=== PATIENT | female | born 1970 | race Caucasian/White ===

== ENCOUNTER 2022-07-22 20:10 | Emergency (ER) | payer BC, SELFPAY ==
[2022-07-22] VITALS (22 sets, daily range): BP systolic 120–142; BP diastolic 77–91; PULSE 100–140; RESP 32; TEMP 36.9; O2SAT 92–98; BMI 30.2
--- NOTE | 2022-07-22 20:23 | CRLHL7_ITS ---
For Patients: As a result of the Century Cures Act, medical imaging exams and procedure reports are released immediately into your electronic medical record. You may view this report before your referring provider. If you have questions, please contact your health care provider. HISTORY: Dyspnea. COMPARISON: None. FINDINGS: Frontal view of the chest. The lungs are clear. No evidence for pneumonia. Heart size and pulmonary vascularity are within normal. No pulmonary edema. No pleural effusion. Bony structures and soft tissues appear within normal. Dictated by Farhana Brewster MD @ 07/22/2022 8:43:41 PM (Electronically Signed)
[2022-07-22 20:35] LABS: HCO3 VBG 27 mmol/L (21-28); PCO2 VBG 41 mmHG (40-50); PO2 VBG 65.9 mmHG (25-47); pH VBG 7.417 (7.32-7.43)
[2022-07-22 20:39] LABS: Eosinophils Absolute Auto 0.05 K/uL (0.00-0.50); Eosinophils Percent Auto 0.8 % (0.0-7.0); Hemoglobin* 13.5 gm/dL (12.0-16.0); Immature Granulocytes Abs Auto 0.01 K/uL (0.00-0.30); Immature Granulocytes Pct Auto 0.2 %; Lymphocytes Percent Auto 18.9 % (20-44); Mean Corpuscular HGB Conc 34 gm/dL (32-36); Mean Corpuscular Hemoglobin 30 pg (26-34); Mean Corpuscular Volume 88 fL (80-100); Monocytes Percent Auto 6.7 % (0.0-11.0); Neutrophils Percent Auto 73.4 % (42.0-72.0); Platelet Count* 278 K/uL (140-440); RDW Coefficient of Variation % 12.8 % (11.5-15.5); Red Blood Count 4.53 m/uL (4.00-5.20)
[2022-07-22] MEDS: RACEPINEPHRINE HCL 0.5 ML VIAL.NEB NEB (20:39)
[2022-07-22] MEDS: IPRAT-ALBUT 0.5-2.5 MG/3 ML NEB 1 NEB IH (20:39)
[2022-07-22 20:49] LABS: Slide Review Reflex No
[2022-07-22] MEDS: 0.9 % SODIUM CHLORIDE 500 ML 500 ML IV (20:49)
[2022-07-22 20:54] LABS: Chloride* 104 mmol/L (96-114); Potassium* 3.9 mmol/L (3.6-5.1); Sodium* 138 mmol/L (135-149)
[2022-07-22 20:57] LABS: Blood Urea Nitrogen* 13 mg/dL (7-30); Carbon Dioxide* 24 mmol/L (20-32); Creatinine* 0.6 mg/dL (0.5-1.5); Est. Creatinine Clearance* 85.76; Estimated Glomerular Filt Rate 107 ml/min; Glucose* 96 mg/dL (60-115)
[2022-07-22 20:58] LABS: Calcium* 9.5 mg/dL (8.4-10.6)
[2022-07-22 21:03] LABS: C Reactive Protein* < 0.5 mg/dL (0.5-1.0)
[2022-07-22 21:06] LABS: NT Pro B Type NatriureticPept* 89 PG/mL (0-125)
[2022-07-22 21:12] LABS: INR 0.82 (0.91-1.10); Prothrombin Time 11.9 Seconds
--- NOTE | 2022-07-22 21:42 | CRLHL7_ITS ---
For Patients: As a result of the Century Cures Act, medical imaging exams and procedure reports are released immediately into your electronic medical record. You may view this report before your referring provider. If you have questions, please contact your health care provider. INDICATION: Chest tightness and dyspnea, elevated D-dimer TECHNIQUE: CT chest pulmonary PE protocol acquired with 95 cc Isovue 370 IV contrast. COMPARISON: April 27, 2021 FINDINGS: Cardiovascular structures: Normal vascular enhancement of the pulmonary arteries, no sign of pulmonary embolism. Heart size is normal. No sign of aneurysm the thoracic aorta. Mediastinum and best: No mass or adenopathy. Lungs: Clear. Pleura and pericardium: No effusions. Chest wall and axilla: No mass or adenopathy. Upper abdomen: Simple cyst in the right hepatic lobe. Status post cholecystectomy. Bones: No significant findings. IMPRESSION: No pulmonary embolism, pneumonia, or acute intrathoracic abnormality. Status post cholecystectomy. Please note that all CT scans at this facility use dose modulation, iterative reconstruction, and/or weight-based dosing when appropriate to reduce radiation dose to as low as reasonably achievable. Dictated by Rebecca Billings MD @ 07/22/2022 10:58:52 PM (Electronically Signed)
[2022-07-22 21:49] LABS: PCR FLU A POSITIVE PCR FLU A (Negative); PCR FLU B Negative PCR FLU B (Negative); PCR RSV Negative PCR RSV (Negative); SARS PCR* Negative SARS-CoV-2 (Negative)
[2022-07-22 23:04] LABS: Partial Thromboplastin Time* 27 Seconds (23-33)
[2022-07-23] VITALS: PULSE 112; O2SAT 94
[2022-07-23 00:01] VITALS: BP 118/79; PULSE 109; O2SAT 94
[2022-07-23 00:15] VITALS: PULSE 105; O2SAT 91
[2022-07-23] MEDS: 0.9 % SODIUM CHLORIDE 500 ML 500 ML 6000 ML IV (00:19)
[2022-07-23] MEDS: KETOROLAC 15 MG/ML inj IVP (00:19)
[2022-07-23] MEDS: ALBUTEROL SULFATE 2.5 MG/3 ML VIAL.NEB NEB (00:19)
[2022-07-23 00:30] VITALS: PULSE 106; O2SAT 93
--- NOTE | 2022-07-23 13:40 | ED.GENADULT ---
HPI - General Adult General Chief complaint: Asthma Stated complaint: Asthma Attack Time Seen by Provider: 07/22/22 20:21 History of Present Illness HPI narrative: 51-year-old woman walk-in to the emergency department extremely dyspneic. This seems to have settled in especially this morning when she started just to feel unwell and increasingly short of breath. It sounds though that there was somewhat of an abrupt onset of more significant symptoms. Does have inhalers at home but these have not been helpful; simply has not been able to hold her breath long enough to even keeping the medication. Has not been using her controller inhalers generally. This information is difficult to obtain initially as she is so breathless. Has not had a fever. Was having some cough and congestion preceding this. Sometime I think around an episode of coughing then started to feel like she was choking her like her throat was tightening. She later recounts that she has felt this similarly in the past and sounds like it might be distinct from typical asthma. Does not have a diagnosis of COPD. Does not smoke. No leg pain or swelling. Later demonstrating feeling with her hands placed around her neck in a choking gesture. Denies feeling particularly anxious or history of anxiety. No particular allergen exposure. Related Data Home Medications Medication Instructions Recorded Confirmed albuterol sulfate 90 mcg/actuation inhalation 07/22/22 aerosol inhaler Previous Rx's Medication Instructions Recorded trazodone 100 mg tablet 150 mg PO .hs PRN insomnia #90 tabs 03/13/22 ipratropium 0.5 mg-albuterol 3 mg 3 ml inhalation QID PRN #90 mL 07/23/22 (2.5 mg base)/3 mL nebulization soln Allergies Allergy/AdvReac Type Severity Reaction Status Date / Time codeine Allergy Intermediate Hives Verified 07/22/22 20:38 Review of Systems Status of ROS: Reports: 10 or more systems reviewed and unremarkable except as noted in History and below [facility] Medical History Insomnia Exam Narrative: Exam Narrative: Arrives in marked distress. Appears anxious. Extremely tachypneic and vaguely stridorous. At least harsh inhalations and exhalation. My initial auscultation however does not reveal any wheeze. She does have good air movement. Trachea midline. She is drooling through the non-rebreather mask and somewhat tripoding. Cardiovascular is tachycardic in regular rhythm. Extremities are without edema and she appears to be well perfused. Cranial nerves 2-12 intact. Is able to move all extremities without apparent difficulty. Const: Vital Signs, click to edit/add: Vital Signs - 24 hr 07/22/22 20:20 07/22/22 20:22 07/22/22 20:55 Temperature 98.4 F Pulse Rate 104 H Pulse Rate [Pulse Oximeter] 140 H Respiratory Rate 32 H Blood Pressure Blood Pressure [Le ft Upper Arm] 142/84 H Pulse Oximetry 98 94 94 Oxygen Delivery Me thod Room Air 07/22/22 21:00 07/22/22 21:01 07/22/22 21:15 Temperature Pulse Rate 104 H 105 H 110 H Pulse Rate [Pulse Oximeter] Respiratory Rate Blood Pressure 123/84 Blood Pressure [Le ft Upper Arm] Pulse Oximetry 94 92 95 Oxygen Delivery Me thod 07/22/22 21:31 07/22/22 21:32 07/22/22 21:45 Temperature Pulse Rate 105 H 107 H 103 H Pulse Rate [Pulse Oximeter] Respiratory Rate Blood Pressure 120/82 Blood Pressure [Le ft Upper Arm] Pulse Oximetry 93 93 93 Oxygen Delivery Me thod 07/22/22 22:04 07/22/22 22:05 07/22/22 22:06 Temperature Pulse Rate 122 H 121 H 126 H Pulse Rate [Pulse Oximeter] Respiratory Rate Blood Pressure 128/80 126/91 H Blood Pressure [Le ft Upper Arm] Pulse Oximetry 96 96 94 Oxygen Delivery Me thod 07/22/22 22:22 07/22/22 22:30 07/22/22 22:31 Temperature Pulse Rate 109 H 106 H 102 H Pulse Rate [Pulse Oximeter] Respiratory Rate Blood Pressure 130/85 Blood Pressure [Le ft Upper Arm] Pulse Oximetry 97 95 94 Oxygen Delivery Me thod 07/22/22 22:45 07/22/22 23:00 07/22/22 23:01 Temperature Pulse Rate 101 H 110 H 111 H Pulse Rate [Pulse Oximeter] Respiratory Rate Blood Pressure 122/86 Blood Pressure [Le ft Upper Arm] Pulse Oximetry 93 93 94 Oxygen Delivery Me thod 07/22/22 23:17 07/22/22 23:30 07/22/22 23:31 Temperature Pulse Rate 108 H 108 H 100 Pulse Rate [Pulse Oximeter] Respiratory Rate Blood Pressure 124/77 Blood Pressure [Le ft Upper Arm] Pulse Oximetry 94 93 93 Oxygen Delivery Me thod 07/22/22 23:45 07/23/22 00:00 07/23/22 00:01 Temperature Pulse Rate 113 H 112 H 109 H Pulse Rate [Pulse Oximeter] Respiratory Rate Blood Pressure 118/79 Blood Pressure [Le ft Upper Arm] Pulse Oximetry 94 94 94 Oxygen Delivery Me thod 07/23/22 00:15 07/23/22 00:30 Temperature Pulse Rate 105 H 106 H Pulse Rate [Pulse Oximeter] Respiratory Rate Blood Pressure Blood Pressure [Le ft Upper Arm] Pulse Oximetry 91 93 Oxygen Delivery Me thod Documenting provider has reviewed patient's vital signs: yes Course Vital Signs Vital signs: Initial Vital Signs Temperature 98.4 F 07/22/22 20:20 Temperature Source Temporal Artery Scan 07/22/22 20:20 Pulse Rate 140 H 07/22/22 20:20 Respiratory Rate 32 H 07/22/22 20:20 Blood Pressure 142/84 H 07/22/22 20:20 Blood Pressure Mean 103 07/22/22 20:20 Pulse Oximetry 98 07/22/22 20:20 Oxygen Delivery Method 07/22/22 20:20 Vital Signs Temperature 98.4 F 07/22/22 20:20 Pulse Rate 140 H 07/22/22 20:20 Respiratory Rate 32 H 07/22/22 20:20 Blood Pressure 142/84 H 07/22/22 20:20 Pulse Oximetry 98 07/22/22 20:20 Oxygen Delivery Method 07/22/22 20:20 Temperature 98.4 F 07/22/22 20:20 Pulse Rate 106 H 07/23/22 00:30 Respiratory Rate 32 H 07/22/22 20:20 Blood Pressure 118/79 07/23/22 00:01 Pulse Oximetry 93 07/23/22 00:30 Oxygen Delivery Method 07/22/22 20:20 Medical Decision Making MDM Narrative Medical decision making narrative: Is initiated on oxygen but is oxygenating 98-100% on room air. Subsequently being transition to a DuoNeb though absent of wheezing what I think is more of an upper airway issue I ask for epinephrine neb to be initiated. Does over time calm. Labs are drawn. Chest x-ray by my read is without evidence of infiltration it or pneumothorax. My initial concern was large pulmonary embolus however maintaining oxygen saturations and without pleuritic chest pain. This seems more of a laryngospasm type event in the setting of asthma. She mentioned had been feeling unwell and so is being triple screened as well. Prior to triple screen being resulted D-dimer is available and elevated somewhat. Is sent for IV contrasted CT scan pulmonary embolus protocol was thankfully is negative. Positive influenza a Overall has been improving. And still feels some tightness in the upper chest. Examination of the oropharynx mildly erythematous. Neck is supple without lymphadenopathy. Mild edema perhaps as well. She remains somewhat laryngitic. Given ice chips. She says this helps a little. We continue to monitor and oxygenation has dropped a little bit though to 93-95%. Is given a DuoNeb. Script written for nebulizer. Lab Data Lab results reviewed: Yes I reviewed the patient's lab results Labs: Lab Results 07/22/22 07/22/22 07/22/22 Range/Units 20:20 20:20 20:20 WBC 6.60 (4.50-11.00) K/uL RBC 4.53 (4.00-5.20) m/uL Hgb 13.5 (12.0-16.0) gm/dL Hct 40.0 (33.0-51.0) % MCV 88 (80-100) fL MCH 30 (26-34) pg MCHC 34 (32-36) gm/dL RDW Coeff of Sophia 12.8 (11.5-15.5) % Plt Count 278 (140-440) K/uL Neut % (Auto) 73.4 H (42.0-72.0) % Lymph % (Auto) 18.9 L (20-44) % Miller % (Auto) 6.7 (0.0-11.0) % Eos % (Auto) 0.8 (0.0-7.0) % Baso % (Auto) 0.0 (0.0-3.0) % Neut # (Auto) 4.80 (1.7-7.0) K/uL Lymph # (Auto) 1.20 (0.90-2.90) K/uL Miller # (Auto) 0.40 (0.00-0.90) K/UL Eos # (Auto) 0.05 (0.00-0.50) K/uL Baso # (Auto) 0.00 (0.00-0.30) K/uL Abs Immat Gran (auto) 0.01 (0.00-0.30) K/uL Imm/Tot Granulo (auto) 0.2 % INR 0.82 L (0.91-1.10) APTT 27 (23-33) Seconds D-Dimer Quant (PE/DVT) 0.60 H (0.00-0.50) ug/ml VBG pH (7.32-7.43) VBG pCO2 (40-50) mmHG VBG pO2 (25-47) mmHG VBG HCO3 (21-28) mmol/L Sodium 138 (135-149) mmol/L Potassium 3.9 (3.6-5.1) mmol/L Chloride 104 (96-114) mmol/L Carbon Dioxide 24 (20-32) mmol/L BUN 13 (7-30) mg/dL Creatinine 0.6 (0.5-1.5) mg/dL Estimated Creat Clear 85.76 Estimated GFR 107 ml/min Glucose 96 (60-115) mg/dL Calcium 9.5 (8.4-10.6) mg/dL C-Reactive Protein < 0.5 L (0.5-1.0) mg/dL NT-Pro-B Natriuret Pep 89 (0-125) PG/mL SARS-CoV-2 (PCR) (Negative) Influenza Type A (PCR) (Negative) Influenza Type B (PCR) (Negative) RSV (PCR) (Negative) 07/22/22 07/22/22 Range/Units 20:20 20:20 WBC (4.50-11.00) K/uL RBC (4.00-5.20) m/uL Hgb (12.0-16.0) gm/dL Hct (33.0-51.0) % MCV (80-100) fL MCH (26-34) pg MCHC (32-36) gm/dL RDW Coeff of Sophia (11.5-15.5) % Plt Count (140-440) K/uL Neut % (Auto) (42.0-72.0) % Lymph % (Auto) (20-44) % Miller % (Auto) (0.0-11.0) % Eos % (Auto) (0.0-7.0) % Baso % (Auto) (0.0-3.0) % Neut # (Auto) (1.7-7.0) K/uL Lymph # (Auto) (0.90-2.90) K/uL Miller # (Auto) (0.00-0.90) K/UL Eos # (Auto) (0.00-0.50) K/uL Baso # (Auto) (0.00-0.30) K/uL Abs Immat Gran (auto) (0.00-0.30) K/uL Imm/Tot Granulo (auto) % INR (0.91-1.10) APTT (23-33) Seconds D-Dimer Quant (PE/DVT) (0.00-0.50) ug/ml VBG pH 7.417 (7.32-7.43) VBG pCO2 41 (40-50) mmHG VBG pO2 65.9 H (25-47) mmHG VBG HCO3 27 (21-28) mmol/L Sodium (135-149) mmol/L Potassium (3.6-5.1) mmol/L Chloride (96-114) mmol/L Carbon Dioxide (20-32) mmol/L BUN (7-30) mg/dL Creatinine (0.5-1.5) mg/dL Estimated Creat Clear Estimated GFR ml/min Glucose (60-115) mg/dL Calcium (8.4-10.6) mg/dL C-Reactive Protein (0.5-1.0) mg/dL NT-Pro-B Natriuret Pep (0-125) PG/mL SARS-CoV-2 (PCR) Negative SARS-CoV-2 (Negative) Influenza Type A (PCR) POSITIVE PCR FLU A A (Negative) Influenza Type B (PCR) Negative PCR FLU B (Negative) RSV (PCR) Negative PCR RSV (Negative) Critical Care Time Critical Care Time Critical Care Time: Yes Attestation: The patient required my highest level preparedness to intervene emergently and I personally spent this critical care time directly and personally managing the patient. This critical care time included: Obtaining a history; Examining the patient; Pulse oximetry; Ordering and reviewing of studies; Arranging urgent treatment with development of a management plan; Evaluation of patients response to treatment; Frequent reassessment discussions with other providers. This critical care time was performed to assess and manage the high probability of imminent life-threatening deterioration that could result in multiorgan failure. It was exclusive of separate billable procedures and treating other patients and teaching time. Total Critical Care Time in Minutes: 40 Discharge Plan Discharge Clinical Impression: Asthma exacerbation, Influenza A, Laryngospasm, Headache Patient Disposition: Home w/ Parent or Adult Condition: Improved Additional Instructions: Hydrate. Sleep under the mist of a cool mist humidifier. Menthol vapors might be helpful. If you are noticing yourself to be wheezy, I would use the nebulizations 3-4 times daily over the next 3 days. Do restart your controller medication for asthma. Return for persistent and increased rate and work of breathing, chest pain associated with shortness of breath, inability to control fever. Prednisone, Tamiflu from [facility]. Prescriptions: New ipratropium-albuterol 0.5 mg-3 mg(2.5 mg base)/3 mL solution for nebulization 3 ml inhalation QID PRNQty: 90 1RF No Action albuterol sulfate 90 mcg/actuation HFA aerosol inhaler INHALATION trazodone 100 mg tablet 150 mg PO .hs PRN (Reason: insomnia) Qty: 90 3RF Follow Up/Referrals: Killian Potts MD [Primary Care Provider] - Stand Alone Forms: [employer] Info Instructions
== END 2022-07-23 00:43 | disposition home or self-care (01) ==
PROVIDERS: Emergency Provider Family Medicine; PCP Internal Medicine
DX: J45.901 Unspecified asthma with (acute) exacerbation (principal); J09.X2 Influenza due to identified novel influenza A virus with other respiratory manifestations
CPT/HCPCS: 36415; 71045; 71260; 80048; 82803; 83880; 85025; 85379; 85610; 85730; 86140; 87502; 87634; 87635; 94640; 94761; 96374; 99284; 99285; 99291; J1885; J7120; Q9967

== ENCOUNTER 2022-11-18 18:46 | Emergency (ER) | payer BC, SELFPAY ==
[2022-11-18 18:53] VITALS: BP 114/81; PULSE 71; RESP 16; TEMP 36.6; O2SAT 95; BMI 32.9
--- NOTE | 2022-11-18 19:08 | ED.LOWEXIN ---
HPI - Extremity Injury (Lower) General Time Seen by Provider: 19:08 Date Seen: 11/18/22 Chief Complaint: Extremity Pain/Injury, Lower Stated Complaint: Fell and hit R knee, Pain moving throughout R leg Time Seen by Provider: 11/18/22 19:08 Source: patient and RN notes reviewed Mode of arrival: ambulatory Limitations: no limitations History of Present Illness HPI Narrative: Rebecca is a 52-year-old female coming in with concern of right leg pain. She fell in her laundry room landing forward anteriorly on her right kneecap area or Wednesday of last week. There is maybe a little pain initially. By Wednesday she was having increasing pain. Feeling pain radiating down the outside of the right leg, pain radiating up the outside of the right leg. She feels it up to the outside of her hip. She notes when she tries to cross her right leg over the left she has limited movement across her body. She feels that flexibility is decreased. She feels like the right knee is a bit swollen. She does have some pain walking on the right knee and it will radiate down the leg and up the leg. She does not feel back pain per se with this but has had a history of back pain. The pain is not radiating down the back into the leg. 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 She could not get into the clinic until next Wednesday to see Dr. Potts. She does not remember injuring her right arm at all but her right shoulder is felt a little sore, has felt some pain into the muscles on the right anterior side of the neck, points to the sternocleidomastoid muscle. Does not sound like there is radiculopathy. With walking she feels some pain into the knee but also does think it feels like it is in the hip as well. Her primary complaint is her injury of her knee that is causing leg pain. MD complaint: knee injury Related Data Home Medications Medication Instructions Recorded Confirmed albuterol sulfate 90 mcg/actuation inhalation 07/22/22 aerosol inhaler Previous Rx's Medication Instructions Recorded ipratropium 0.5 mg-albuterol 3 mg 3 ml inhalation QID PRN #90 mL 07/23/22 (2.5 mg base)/3 mL nebulization soln trazodone 100 mg tablet 150 mg PO .hs PRN insomnia #90 tabs 10/15/22 Allergies Allergy/AdvReac Type Severity Reaction Status Date / Time kiwi Allergy Severe Anaphylaxis Verified 11/18/22 19:03 codeine Allergy Intermediate Hives Verified 11/18/22 19:03 peanut Allergy Intermediate Hives Verified 11/18/22 19:03 Review of Systems Status of ROS: Reports: 6 or more systems reviewed and unremarkable except as noted in History and below [facility] Medical History Insomnia Social History Smoking Status: Never smoker Do you use any of these nicotine containing products: None Second hand tobacco smoke exposure: No How often do you have a drink containing alcohol: 2-4 times a month How many standard drinks containing alcohol do you have on a typical day: 1 or 2 How often do you have six or more drinks on one occasion: Never AUDIT-C Alcohol total score: 2 Non-prescribed substance use: denies use service: No Exam Const: Vital Signs, click to edit/add: Vital Signs - 24 hr 11/18/22 18:53 Temperature 97.8 F Pulse Rate [Pulse Oximeter] 71 Respiratory Rate 16 Blood Pressure [Ri ght Upper Arm] 114/81 Pulse Oximetry 95 Oxygen Delivery Me thod Room Air Documenting provider has reviewed patient's vital signs: yes Common normals: no apparent distress, oriented x3, no limitations, healthy appearing and alert General appearance: cooperative, comfortable, well kempt and well developed Nutritional appearance: overweight HENMT: Common normals: normocephalic, head/scalp atraumatic, hearing grossly normal bilaterally and external nose normal Head and scalp: normocephalic and atraumatic Nose: external nose normal Mouth: lip normal Eye: Common normals: PERRL, EOMs intact bilaterally, conjunctivae normal and no scleral icterus Conjunctiva: conjunctiva(e) normal Pupil: PERRL Neck & C-Spine: Common normals: full ROM (No midline tenderness of her neck.), no lymphadenopathy (No masses, no tenderness musculature), supple, no meningeal signs, no JVD and thyroid normal Thyroid: thyroid normal Cardio: Common normals: no JVD, regular rate, regular rhythm, S1 normal heart sound, S2 normal heart sound, no gallops, no clicks and no murmurs Rate: regular rate Rhythm: regular rhythm Heart sounds: S1 normal and S2 normal Extremity: Other: Good symmetrical peripheral pulses, no edema or swelling noted of either extremity. Complains of range of motion when I do flexion extension of her right knee but there is no limitation. Negative Bull's to the best of my ability to perform this on her. I feel no palpable joint line tenderness, do not feel any effusion. There is no open wounds, no ecchymosis. She can straight leg raise without difficulty. There is some tenderness as you palpate along the outer thigh particularly over the trochanteric area. Internal external rotation of the hip does not reveal any significant pain. No midline tenderness over the back. Clavicle glenohumeral joint palpate intact on her right arm. She has got good range of motion of the right shoulder. I can find no evidence of any effusion, good range of motion of the shoulder itself although there may be some pain over 90?. Neuro: Common normals: oriented x3 Sensorium/orientation: alert Meningeal signs: no meningeal signs Psych: Appearance: well ket Course Course Hospital Course: This seems to be stemming from a knee injury. She could have some secondary referred pain up and down the leg. There is no evidence of swelling no physical changes representing any vascular change. She has pain with range of motion within the right knee. Does seem to have possibly some trochanteric bursitis based on clinical exam. She could have intra-articular issue stemming from the fall in the knee within the knee joint itself, possible translation into the hip joint with cartilaginous issues in both joints as a possibility. Have discussed x-raying her knee in her hip to start here, will follow up with her after I have seen those and the Radiology over-read. Reevaluation(s) Reevaluation #1: Reviewed with patient that her x-rays are not showing any acute pathology. She asked if we had a brace. I reviewed that we only had a long leg knee immobilizer. She did not want that. We discussed trying to go to a place that had durable medical goods, she might be able to find a neoprene sleeve to go over the knee for stability, could even trying Aron wrap around it. She is given a note to be off work tomorrow in Wednesday as she states the floors are extremely difficult for her to stand on right now. She will follow up with her appointment next week. We have discussed relative rest, ice elevation, Tylenol and ibuprofen for pain control. Time: 20:58 Vital Signs Vital signs: Initial Vital Signs Temperature 97.8 F 11/18/22 18:53 Temperature Source Temporal Artery Scan 11/18/22 18:53 Pulse Rate 71 11/18/22 18:53 Pulse Rhythm Regular 11/18/22 18:53 Pulse Strength 3+ Normal 11/18/22 18:53 Respiratory Rate 16 11/18/22 18:53 Blood Pressure 114/81 11/18/22 18:53 Blood Pressure Mean 92 11/18/22 18:53 Blood Pressure Position Sitting 11/18/22 18:53 Pulse Oximetry 95 11/18/22 18:53 Oxygen Delivery Method Room Air 11/18/22 18:53 Vital Signs Temperature 97.8 F 11/18/22 18:53 Pulse Rate 71 11/18/22 18:53 Respiratory Rate 16 11/18/22 18:53 Blood Pressure 114/81 11/18/22 18:53 Pulse Oximetry 95 11/18/22 18:53 Oxygen Delivery Method Room Air 11/18/22 18:53 Temperature 97.8 F 11/18/22 18:53 Pulse Rate 71 11/18/22 18:53 Respiratory Rate 16 11/18/22 18:53 Blood Pressure 114/81 11/18/22 18:53 Pulse Oximetry 95 11/18/22 18:53 Oxygen Delivery Method Room Air 11/18/22 18:53 MDM - Extremity Injury (Lower) Imaging Data X-ray right knee: Attestation: I have reviewed the pertinent imaging results. Radiologist's impression: Patient: REBECCA TRAMMELL Facility:?[facility] Patient ID:?[id number]?1970 Study:?XRay Knee Right 2V-11/18/2022 7:54:55 PM Ordering Physician:Pawan Simms Final Report: INDICATION: Fall, pain TECHNIQUE: Two views right knee COMPARISON: None available FINDINGS: No definite acute fracture or dislocation. Mild degenerative changes. No definite joint effusion. IMPRESSION: No acute fracture or dislocation. Dictated by Sharif Wagner MD @ 11/18/2022 8:07:20 PM (Electronic Signature) X-ray right hip: Attestation: I have reviewed the pertinent imaging results. Radiologist's impression: Patient: REBECCA TRAMMELL Facility:?[facility] Patient ID:?[id number] Site Patient ID:?[id number]. Site :?[id number] Study:?XRay Hip Right HIP 2V WITH PELVIS-11/18/2022 7:56:00 PM Ordering Physician:Pawan Simms Final Report: INDICATION: Injury and pain. TECHNIQUE: Pelvis and right hip 3 views. COMPARISON: None. FINDINGS: No acute fractures or malalignment. Joint spaces are maintained. Soft tissues are unremarkable. IMPRESSION: No acute osseous abnormalities. Dictated by Eulalio Schwarz MD @ 11/18/2022 8:10:48 PM (Electronic Signature) Critical Care Time Critical Care Time Critical Care Time: No Discharge Plan Discharge Clinical Impression: Acute pain of right knee Patient Disposition: Home, Self-Care Condition: Stable Instructions: Knee Pain (ED) Additional Instructions: Ice, elevate to try to minimize pain and swelling. Can use Tylenol and or ibuprofen as needed per bottle directions. Keep your appointment in clinic next week. Have provided a note to be off work the next 2 days. Activity Level: Activity as Tolerated Prescriptions: No Action albuterol sulfate 90 mcg/actuation HFA aerosol inhaler INHALATION ipratropium-albuterol 0.5 mg-3 mg(2.5 mg base)/3 mL solution for nebulization 3 ml inhalation QID PRNQty: 90 1RF trazodone 100 mg tablet 150 mg PO .hs PRN (Reason: insomnia) Qty: 90 3RF Follow Up/Referrals: Killian Potts MD [Primary Care Provider] - Stand Alone Forms: [employer] Info Instructions
--- NOTE | 2022-11-18 19:15 | CRLHL7_ITS ---
For Patients: As a result of the Cures Act, medical imaging exams and procedure reports are released immediately into your electronic medical record. You may view this report before your referring provider. If you have questions, please contact your health care provider. INDICATION: Fall, pain TECHNIQUE: Two views right knee COMPARISON: None available FINDINGS: No definite acute fracture or dislocation. Mild degenerative changes. No definite joint effusion. IMPRESSION: No acute fracture or dislocation. Dictated by Sharif Wagner MD @ 11/18/2022 8:07:20 PM (Electronically Signed)
--- NOTE | 2022-11-18 19:15 | CRLHL7_ITS ---
For Patients: As a result of the Cures Act, medical imaging exams and procedure reports are released immediately into your electronic medical record. You may view this report before your referring provider. If you have questions, please contact your health care provider. INDICATION: Injury and pain. TECHNIQUE: Pelvis and right hip 3 views. COMPARISON: None. FINDINGS: No acute fractures or malalignment. Joint spaces are maintained. Soft tissues are unremarkable. IMPRESSION: No acute osseous abnormalities. Dictated by Eulalio Schwarz MD @ 11/18/2022 8:10:48 PM (Electronically Signed)
== END 2022-11-18 21:07 | disposition home or self-care (01) ==
PROVIDERS: Emergency Provider Family Medicine; PCP Internal Medicine
DX: M25.561 Pain in right knee (principal)
CPT/HCPCS: 73502; 73560; 99283

== ENCOUNTER 2022-11-24 16:28 | Outpatient (CLI) | payer BC, SELFPAY | END 2022-11-24 16:29 | disposition home or self-care (01) | LOC: NFLDREF 16:29 | PROVIDERS: PCP Internal Medicine; Visit Provider Internal Medicine | DX: E55.9 Vitamin D deficiency, unspecified (principal); E03.9 Hypothyroidism, unspecified | CPT/HCPCS: 84439; 84443 ==

== ENCOUNTER 2022-12-29 15:15 | Outpatient (RCR) | payer BC, SELFPAY | END 2023-04-28 23:59 | disposition home or self-care (01) | PROVIDERS: PCP Internal Medicine; Visit Provider Internal Medicine | DX: M54.16 Radiculopathy, lumbar region (principal); R26.9 Unspecified abnormalities of gait and mobility; R26.81 Unsteadiness on feet; M62.81 Muscle weakness (generalized); Z51.89 Encounter for other specified aftercare | CPT/HCPCS: 97110; 97162 ==

== ENCOUNTER 2023-09-21 13:51 | Outpatient (CLI) | payer BC, SELFPAY ==
--- OUTSIDE RECORDS SUMMARY | 2023-09-21 13:54 | XMS_ITS | Continuity of Care Document ---
Author Name Unknown Organization [facility] Address [address] [place] [address] [address] [place] [address] Phone Care Team Providers Care Shot Bagger Name Role Phone Seferino Yanez MD Unavailable Unavailable Advance Directives Directive Yes / No Effective Date File Name No Information Encounters Encounter Description Practice Location Reason(s) For Visit Diagnoses Date Provider Providers Copied on Encounter [facility], [address] [place] [address], [address], tel:[phone] [address] [facility] No Information Renata Gentile. [facility], [address], [place], [id number] , [place]. tel:[phone] Family History Family Member Type Diagnosis Age At Onset No Information Payers Payer name Insurance type Covered green party ID Authoriza timonty(s) [facility] [id number] [facility] [id number] Social History Type Description Quantity Date Captured Comments Sex Female Smoking Status No Information Chief Complaint And Reason For Visit No Information Reason For Referral Reason For Referral No Information History Of Present Illness Encounter Date Complaint History Of Prese nt Illness No Information Functional Status Date Functional Assessmen t No Information Instructions Date Instruction Additional Infor mation No Information Assessments Type Assessment Date No Information Patient Care Teams Name Effective Dates (start - stop) Status Members No Information
--- OUTSIDE RECORDS SUMMARY | 2023-09-21 13:54 | XMS_ITS | Clinical Summary ---
Author Name Unknown Organization [facility] Address [place], [place] [address] Care Team Providers Care Gaming Manager Name Role Phone No, Pcp [[id number]] Primary Care Provider Unavailabl e Allergies Active Allergy Reactions Criticality Noted Date Comments Codeine Hives 07/21/2011 Kiwi Shortness Of Breath 01/10/2016 Peanut Hives,Itching 01/10/2016 Medications Medication Sig Dispensed Refills Start Date End Date Status CALCIUM CARBONATE-VITAMIN D2 500 MG-200 UNIT TAB 1 po bid 60 3 07/10/2008 Active nystatin (MYCOSTATIN) creamIndications:Fun gal rash of torso Apply topically to affected area(s) each time if needed for Other (Specify). 30 g 1 01/22/2015 Active fexofenadine (MYRIAM) 180 mg tabletIndications:Al lergic reaction, subsequent encounter Take 1 tablet by mouth once daily. 0 01/22/2015 Active cholecalciferol (VITAMIN D-3) 2,000 unit capsuleIndications:V itamin D deficiency Take 1 capsule by mouth once daily. 0 01/23/2015 Active albuterol HFA 90 mcg/actuation inhalerIndications:M oderate persistent asthma without complication Inhale 2 Puffs by mouth 4 times daily if needed. 1 Inhaler 3 09/03/2016 Active fluticasone (FLOVENT HFA) 110 mcg/Actuation inhalerIndications:M oderate persistent asthma without complication Inhale 2 Puffs by mouth 2 times daily. 1 Inhaler 11 09/03/2016 Active atorvastatin (LIPITOR) 20 mg tabletIndications:Hy perlipidemia, unspecified hyperlipidemia type Take 1 tablet by mouth once daily. 30 tablet 1 09/03/2016 Active EPINEPHrine (EPIPEN) 0.3 mg/0.3 mL injectionIndications :Allergic reaction, subsequent encounter Inject 0.3 mg intramuscular one time if needed for Allergic Reaction. 1 Each 09/03/2016 Active fluconazole (DIFLUCAN) 150 mg tabletIndications:Ye ast infection TAKE 1 TABLET BY MOUTH 1 TIME FOR 1 DOSE 1 tablet 0 01/19/2017 Active cyclobenzaprine (FLEXERIL) 5 mg tabletIndications:Ne ck pain, acute Take 1-2 tablets by mouth every 8 hours if needed for Muscle Spasm. 30 tablet 0 06/14/2017 Active levothyroxine (SYNTHROID) 75 mcg tabletIndications:Hy pothyroidism, unspecified type Take 1 tablet by mouth once daily. 30 tablet 0 11/15/2017 Active Active Problems Problem Noted Date Diagnosed Date Neck pain, acute 06/14/2017 Vitamin D deficiency 01/22/2014 Hypothyroidism 01/22/2014 Heel pain 01/17/2014 Actinic keratosis 06/01/2013 L3-4 and L5-S1 Herniations 03/25/2009 Right L4 and Left S1 Radiculitis 03/25/2009 Degeneration of lumbar or lumbosacral interverte bral disc 11/21/2007 Head injury, unspecified 02/08/2007 Overview: fell down stairs in 1997 Unspecified asthma(493.90) 02/08/2007 Immunizations Name Administration Dates Next Due Influenza, IIV3 (Age >=3 years) 08/28/2006 Tdap 08/12/2009 Family History Medical History Relation Name Comments Heart Disease Mother Relation Name Status Comments Father Alive Mother Alive Social History Tobacco Use Types Packs/Day Years Used Date Smoking Tobacco: Former Cigarettes Q uit: 06/07/2012 Smokeless Tobacco: Never Tobacco Cessation:Counseling Given: Yes Comments:occ. Alcohol Use Standard Drinks/Week Comments Yes 0 (1 standard drink = 0.6 oz pure alcohol) 1-2 drinks on the weekend occasionally Sex and Gender Information Value Date Recorded Sex Assigned at Not on file Gender Identity Not on file Sexual Orientation Not on file Obstetrics History Para Term AB IAB SAB Ectopic Multiple Livin g Live Births 2 2 2 Date Outcome GA Total Labor Labor/2nd/3rd Weight Sex Delivery Anes PTL Sherri A1 A5 Name Cl in Para Para Last Filed Vital Signs Vital Sign Reading Time Taken Comments Blood Pressure 119/83 06/14/2017 1:33 PM CDT Pulse 83 06/14/2017 1:33 PM CDT Temperature 36.9 ??C (98.4 ??F) 06/14/2017 1:33 PM CD T Respiratory Rate 18 01/10/2016 1:30 PM CDT Oxygen Saturation 98% 06/14/2017 1:33 PM CDT Inhaled Oxygen Concentration - - Weight 76.1 kg (167 lb 11.2 oz) 06/14/2017 1:33 PM CDT Height 154.9 cm (5' 1) 09/14/2016 1:43 PM PRESCHOOL DIRECTOR Body Mass Index 31.69 09/14/2016 1:43 PM PRESCHOOL DIRECTOR Plan of Treatment Health Maintenance Due Date Last Done Comments COVID-19 vaccine series (#1) 02/12/1969 HIV for age 15-65 1983 Hepatitis C screening for age 18-79 1986 Colonoscopy through age 75 2013 Mammogram for age 45-75 09/08/2017 09/08/2016, 09/19 BMI (ht and wt on same day) for age 18+ 09/14/2017 09/14/2016, 09/03/2016, 01/10/2016 Depression screening for age 12+ 09/14/2017 09/14/2016 Pap test for age 21-65 01/22/2018 5, 01/17/2014, 05/01/2011, Additional history exists Zoster (shingles) series for age 50+ (1 of 2) 2018 Tetanus booster 08/12/2019 08/12/2009 Lipids for age 45-75 04/03/2020 04/03/2015, 01/22/2015, 01/19/2014, Additional history exists Influenza for age 50-64 04/23/2023 08/28/2006 Tdap Completed 08/12/2009 Pneumococcal series for age 6-64 Aged Out No longer eligible based on patient's age to complete this topic Care Teams Gaming Manager Relationship Specialty Start Date End Date NO, PCP [[id number]] PCP - General 11/25/15
== END 2023-09-21 13:52 | disposition home or self-care (01) ==
LOC: NFLDREF 13:52
PROVIDERS: PCP Internal Medicine; Visit Provider Family Medicine
DX: R63.5 Abnormal weight gain (principal)
CPT/HCPCS: 84439; 84443

== ENCOUNTER 2023-09-27 13:38 | Outpatient (CLI) | payer BC, SELFPAY ==
--- OUTSIDE RECORDS SUMMARY | 2023-09-27 13:39 | XMS_ITS | Clinical Summary ---
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
--- OUTSIDE RECORDS SUMMARY | 2023-09-27 13:40 | XMS_ITS | Continuity of Care Document ---
Author Name Unknown Organization [facility] Address [address] [place] [address] [address] [place] [address] Phone Care Team Providers Care Safe Technician Name Role Phone Seferino Yanez MD Unavailable Unavailable Advance Directives Directive Yes / No Effective Date File Name No Information Encounters Encounter Description Practice Location Reason(s) For Visit Diagnoses Date Provider Providers Copied on Encounter [facility], [address] [place] [address], [address], tel:[phone] [address] [facility] No Information Renata Gentile. [facility], [address], [place], [place], [id number] , [place]. tel:[phone] Family History Family Member Type Diagnosis Age At Onset No Information Payers Payer name Insurance type Covered constitution party ID Authoriza timonty(s) [facility] [id number] [facility] [id number] Social History Type Description Quantity Date Captured [...]
[2023-09-27 23:12] LABS: SARS PCR* Negative SARS-CoV-2 (Negative)
== END 2023-09-27 13:39 | disposition home or self-care (01) ==
LOC: KYNREF 13:38
PROVIDERS: PCP Internal Medicine; Visit Provider Nurse Practitioner Family
DX: J06.9 Acute upper respiratory infection, unspecified (principal); Z11.52 Encounter for screening for COVID-19
CPT/HCPCS: 87635

== ENCOUNTER 2023-10-14 15:40 | Emergency (ER) | payer BC, SELFPAY ==
[2023-10-14 16:04] VITALS: BP 132/90; PULSE 78; RESP 18; TEMP 36.4; O2SAT 100; BMI 36.6
--- NOTE | 2023-10-14 17:06 | ED_ITS ---
HPI - General Adult General Date Seen: 10/14/23 Chief complaint: Animal Bite Stated complaint: Cat bite R finger Time Seen by Provider: 10/14/23 16:28 Source: patient and RN notes reviewed Mode of arrival: ambulatory Limitations: no limitations History of Present Illness HPI narrative: Patient is a 53-year-old woman who was bitten by her mother's cat. Cat is up-to-date on immunizations. Patient's last tetanus was in 2019. She sustained a couple of small puncture wounds and 1 slightly larger v-shaped wound on her right index finger. She said it bled a lot initially but bleeding is controlled now. No other injuries or complaints. Related Data Home Medications Medication Instructions Recorded Confirmed albuterol sulfate 90 mcg/actuation 2 inh inhalation 09/27/23 09/27/23 aerosol inhaler Previous Rx's Medication Instructions Recorded trazodone 100 mg tablet 200 mg (2 x 100 mg) PO .hs PRN 09/21/23 insomnia #60 tabs albuterol sulfate 90 mcg/actuation 2 puff inhalation Q4-6H PRN 09/27/23 aerosol inhaler shortness of breath or wheezing #8.5 grams budesonide 90 mcg/actuation breath 1 inh inhalation BID 90 days #180 09/27/23 activated powder inhaler ea (Pulmicort Flexhaler) levothyroxine 50 mcg tablet 50 mcg PO QDAY #90 tabs 09/29/23 amoxicillin 875 mg-potassium 1 tab PO BID #10 tabs 10/14/23 clavulanate 125 mg tablet Allergies Allergy/AdvReac Type Severity Reaction Status Date / Time kiwi Allergy Severe Anaphylaxis Verified 09/27/23 13:12 codeine Allergy Intermediate Hives Verified 09/27/23 13:12 peanut Allergy Intermediate Hives Verified 09/27/23 13:12 pseudoephedrine Allergy Intermediate Hives Verified 09/27/23 13:27 [From Sudafed] [facility] Medical History (Updated 10/14/23 @ 16:49 by Brionna Mars MD) Lumbar radiculopathy ?M54.16 - Radiculopathy, lumbar region (ICD-10) History of traumatic brain injury (1997) ?Z87.820 - Personal history of traumatic brain injury (ICD-10) Insomnia ?G47.00 - Insomnia, unspecified (ICD-10) Surgical History (Updated 11/23/22 @ 13:46 by Pallavi Strickland ~ PSR) History of colonoscopy ?Z98.890 - Other specified postprocedural states (ICD-10) History of cholecystectomy (06/10/12) ?Z90.49 - Acquired absence of other specified parts of digestive tract (ICD- 10) Family History (Updated 11/23/22 @ 13:50 by Pallavi Strickland ~ PSR) Mother Coronary artery disease Social History (Updated 11/23/22 @ 13:50 by Pallavi Strickland ~ PSR) Narrative: Non-smoker Social alcohol use Does not use illicit drugs Smoking Status: Former smoker Do you use any of these nicotine containing products: None Second hand tobacco smoke exposure: No How often do you have a drink containing alcohol: 2-4 times a month How many standard drinks containing alcohol do you have on a typical day: 1 or 2 How often do you have six or more drinks on one occasion: Never AUDIT-C Alcohol total score: 2 Non-prescribed substance use: denies use service: No Exam Narrative: Exam Narrative: Vital signs reviewed In general, alert, nontoxic woman. Extremities: Examination of the right hand shows a v-shaped laceration over the proximal finger between the MCP and the PIP joint on the palmar surface of the hand. She has 2 small punctures more distally. There is some fat protruding from the v-shaped wound. Bleeding is controlled. Distal CMS is normal. The finger is slightly diffusely swollen but she has intact flexion extension at MCP, PIP and the IP joints. Const: Vital Signs, click to edit/add: Vital Signs - 24 hr 10/14/23 16:04 Temperature 97.5 F L Pulse Rate [Pulse Oximeter] 78 Respiratory Rate 18 Blood Pressure [Ri ght Upper Arm] 132/90 H Pulse Oximetry 100 Oxygen Delivery Me thod Room Air Documenting provider has reviewed patient's vital signs: yes Course Course ED Course: I anesthetized the larger wound and trimmed away the fat so that the skin edges are well approximated. Overall the wound is approximately a cm in length, but wound edges approximate nicely, discussed with her that my preference would be not to suture this given that it was encouraged by a cat bite and I think is relatively high risk in terms of getting infected. She is comfortable with that. We cleaned the wounds, tube gauze dressing and antibiotic ointment placed by the nurse. Will prescribe Augmentin prophylactically. Discussed reasons to return, that it will probably feel worse tomorrow but should gradually improve after that. For significant worsening swelling, redness, new symptoms such as fever, inability to move the finger without significant pain return for re- evaluation. Vital Signs Vital signs: Initial Vital Signs Temperature 97.5 F L 10/14/23 16:04 Temperature Source Temporal Artery Scan 10/14/23 16:04 Pulse Rate 78 10/14/23 16:04 Pulse Rhythm Regular 10/14/23 16:04 Respiratory Rate 18 10/14/23 16:04 Blood Pressure 132/90 H 10/14/23 16:04 Blood Pressure Mean 104 10/14/23 16:04 Pulse Oximetry 100 10/14/23 16:04 Oxygen Delivery Method Room Air 10/14/23 16:04 Vital Signs Temperature 97.5 F L 10/14/23 16:04 Pulse Rate 78 10/14/23 16:04 Respiratory Rate 18 10/14/23 16:04 Blood Pressure 132/90 H 10/14/23 16:04 Pulse Oximetry 100 10/14/23 16:04 Oxygen Delivery Method Room Air 10/14/23 16:04 Temperature 97.5 F L 10/14/23 16:04 Pulse Rate 78 10/14/23 16:04 Respiratory Rate 18 10/14/23 16:04 Blood Pressure 132/90 H 10/14/23 16:04 Pulse Oximetry 100 10/14/23 16:04 Oxygen Delivery Method Room Air 10/14/23 16:04 Discharge Plan Discharge Clinical Impression: Cat bite of finger Patient Disposition: Home, Self-Care Condition: Improved Instructions: Animal Bite (ED) Additional Instructions: Antibiotic as prescribed. You can leave the dressing that we put on today on for the next couple few days unless you are having severe increases in pain or swelling in which case she should check the wounds. For significant worsening redness, swelling or pain beyond the next 24 hours, return for re-evaluation. Prescriptions: New amoxicillin-pot clavulanate 875-125 mg tablet 1 tab PO BID Qty: 10 0RF No Action trazodone 100 mg tablet 200 mg PO .hs PRN (Reason: insomnia) Qty: 60 3RF Pulmicort Flexhaler 90 mcg/actuation aerosol powdr breath activated 1 inh inhalation BID 90 Days Qty: 180 3RF albuterol sulfate 90 mcg/actuation HFA aerosol inhaler 2 puff inhalation Q4-6H PRN (Reason: shortness of breath or wheezing) Qty: 8.5 6RF albuterol sulfate 90 mcg/actuation HFA aerosol inhaler 2 inh INHALATION levothyroxine 50 mcg tablet 50 mcg PO QDAY Qty: 90 0RF Follow Up/Referrals: Killian Potts MD [Primary Care Provider] - Stand Alone Forms: AFreeze Info Instructions
== END 2023-10-14 17:08 | disposition home or self-care (01) ==
LOC: ED 16:57
PROVIDERS: Emergency Provider Emergency Medicine; PCP Internal Medicine
DX: S61.250A Open bite of right index finger without damage to nail, initial encounter (principal); W55.01XA Bitten by cat, initial encounter
CPT/HCPCS: 99283; 99284

== ENCOUNTER 2023-11-19 13:50 | Emergency (ER) | payer BC, SELFPAY ==
[2023-11-19 14:28] VITALS: BP 121/81; PULSE 86; RESP 20; TEMP 36.9; O2SAT 97; BMI 36.6
--- NOTE | 2023-11-19 19:02 | ED_ITS ---
HPI - General Adult General Chief complaint: Chest Pain Stated complaint: lower back and chest pain, headache, nausea Time Seen by Provider: 11/19/23 18:39 Source: patient Mode of arrival: ambulatory Limitations: no limitations History of Present Illness HPI narrative: Patient is a 53 year old female coming in today with several concerns. 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 This pain then radiated across the entire mid back, then around the right flank into the right anterior abdomen, then up the back into the neck and around the top of both shoulders, and finally into her neck and across the chest. This spreading pain lasted but minutes before it went away. She states , however, that she immediately developed a dull headache. She then stated that she has felt ?out of it ever since. She really can not be more specific. She does deny neurologic deficits. She states that she still has some right-sided flank discomfort but that all of the other pains have essentially resolved. She is not short of breath. When this occurred she did not lose consciousness, be come dizzy or diaphoretic. She denies any recent illness. She does complain of increased urinary frequency for about a week. No dysuria or urgency. No blood in her urine. No fevers or chills. No nausea or vomiting. She denies confusion, altered mental status. No new ringing in her ears or double vision. Past medical history significant for hypothyroidism, obesity, hypo for lipidemia, asthma, insomnia, vitamin-D deficiency , chronic back pain, lumbar radiculopathy. Related Data Home Medications Medication Instructions Recorded Confirmed albuterol sulfate 90 mcg/actuation 2 inh inhalation 09/27/23 09/27/23 aerosol inhaler Previous Rx's Medication Instructions Recorded trazodone 100 mg tablet 200 mg (2 x 100 mg) PO .hs PRN 09/21/23 insomnia #60 tabs albuterol sulfate 90 mcg/actuation 2 puff inhalation Q4-6H PRN 09/27/23 aerosol inhaler shortness of breath or wheezing #8.5 grams budesonide 90 mcg/actuation breath 1 inh inhalation BID 90 days #180 09/27/23 activated powder inhaler ea (Pulmicort Flexhaler) levothyroxine 50 mcg tablet 50 mcg PO QDAY #90 tabs 09/29/23 amoxicillin 875 mg-potassium 1 tab PO BID #10 tabs 10/14/23 clavulanate 125 mg tablet Allergies Allergy/AdvReac Type Severity Reaction Status Date / Time kiwi Allergy Severe Anaphylaxis Verified 11/19/23 14:34 codeine Allergy Intermediate Hives Verified 11/19/23 14:34 peanut Allergy Intermediate Hives Verified 11/19/23 14:34 pseudoephedrine Allergy Intermediate Hives Verified 11/19/23 14:34 [From Sudafed] Review of Systems Status of ROS: Reports: 10 or more systems reviewed and unremarkable except as noted in History and below [facility] Medical History Lumbar radiculopathy ?M54.16 - Radiculopathy, lumbar region (ICD-10) History of traumatic brain injury (1997) ?Z87.820 - Personal history of traumatic brain injury (ICD-10) Insomnia ?G47.00 - Insomnia, unspecified (ICD-10) Surgical History History of colonoscopy ?Z98.890 - Other specified postprocedural states (ICD-10) History of cholecystectomy (06/10/12) ?Z90.49 - Acquired absence of other specified parts of digestive tract (ICD- 10) Family History Mother Coronary artery disease Social History Narrative: Non-smoker Social alcohol use Does not use illicit drugs Smoking Status: Former smoker Do you use any of these nicotine containing products: None Second hand tobacco smoke exposure: No How often do you have a drink containing alcohol: 2-4 times a month How many standard drinks containing alcohol do you have on a typical day: 1 or 2 How often do you have six or more drinks on one occasion: Never AUDIT-C Alcohol total score: 2 Non-prescribed substance use: denies use service: No Exam Narrative: Exam Narrative: Overweight, well-developed patient in no acute distress. Alert and oriented. Answers questions appropriately. Mood and affect are appropriate. Thoughts are goal oriented and rational. No tangential or magical thinking noted. Patient speaks in full sentences without needing to catch her breath. She does not appear ill or toxic. HEENT: Normocephalic atraumatic. Pupils are equally round reactive to light. Extraocular muscles are intact. Conjunctivae are moist without any icterus noted. Moist mucous membranes. Cardiovascular: Heart is regular rate and rhythm S1 and S2 are present without any murmurs. Lungs: Clear to auscultation bilaterally no wheezes rhonchi or rales are appreciated. Patient takes deep breaths without any discomfort. Abdomen: Soft and nontender nondistended with normal bowel sounds. No guarding or rebound. No masses or organomegaly appreciated. No CVA tenderness. Extremities: Bilateral lower extremities are without edema. Normal DP and PT pulses. Skin: Well perfused without any obvious rashes. Strength is 5/5 of the upper and lower extremities. Reflexes are 2+ and symmetric at the knees. Cranial nerves 3-12 are normal. Cgvkhg-el-sozb is normal. There is no nystagmus either horizontally or vertically. Gait is normal. Const: Vital Signs, click to edit/add: Vital Signs - 24 hr 11/19/23 14:28 Temperature 98.5 F Pulse Rate [Pulse Oximeter] 86 Respiratory Rate 20 Blood Pressure [Ri ght Upper Arm] 121/81 Pulse Oximetry 97 Oxygen Delivery Me thod Room Air Course Course ED Course: Given her continued right flank pain and increased urinary frequency over the last week, we did proceed with labs and a UA. CBC is normal. Chemistries are unremarkable. LFTs are unremarkable. Normal CRP. UA unremarkable. Patient reassured. Vital Signs Vital signs: Initial Vital Signs Temperature 98.5 F 11/19/23 14:28 Temperature Source Temporal Artery Scan 11/19/23 14:28 Pulse Rate 86 11/19/23 14:28 Pulse Rhythm Regular 11/19/23 14:28 Respiratory Rate 20 11/19/23 14:28 Blood Pressure 121/81 11/19/23 14: Blood Pressure Mean 94 11/19/23 14:28 Blood Pressure Position Sitting 11/19/23 14:28 Pulse Oximetry 97 11/19/23 14:28 Oxygen Delivery Method Room Air 11/19/23 14:28 Vital Signs Temperature 98.5 F 11/19/23 14:28 Pulse Rate 86 11/19/23 14:28 Respiratory Rate 20 11/19/23 14:28 Blood Pressure 121/81 11/19/23 14:28 Pulse Oximetry 97 11/19/23 14:28 Oxygen Delivery Method Room Air 11/19/23 14:28 Temperature 98.5 F 11/19/23 14:28 Pulse Rate 86 11/19/23 14:28 Respiratory Rate 20 11/19/23 14:28 Blood Pressure 121/81 11/19/23 14:28 Pulse Oximetry 97 11/19/23 14:28 Oxygen Delivery Method Room Air 11/19/23 14:28 Medical Decision Making MDM Narrative Medical decision making narrative: 53-year-old female with sudden back pain with straightening up from a bent over position. We discussed heating pad, Tylenol reasons for follow-up. Patient had no other questions. Lab Data Lab results reviewed: Yes I reviewed the patient's lab results Labs: Lab Results 11/19/23 11/19/23 Range/Units 19:09 19:37 WBC 4.66 (4.50-11.00) K/uL RBC 4.42 (4.00-5.20) m/uL Hgb 13.2 (12.0-16.0) gm/dL Hct 41.3 (33.0-51.0) % MCV 93 (80-100) fL MCH 30 (26-34) pg MCHC 32 (32-36) gm/dL RDW Coeff of Sophia 12.8 (11.5-15.5) % Plt Count 169 (140-440) K/uL Neut % (Auto) 57.9 (42.0-72.0) % Lymph % (Auto) 27.7 (20-44) % Whiteside % (Auto) 13.1 H (0.0-11.0) % Eos % (Auto) 1.3 (0.0-7.0) % Baso % (Auto) 0.0 (0.0-3.0) % Neut # (Auto) 2.70 (1.7-7.0) K/uL Lymph # (Auto) 1.29 (0.90-2.90) K/uL Whiteside # (Auto) 0.60 (0.00-0.90) K/UL Eos # (Auto) 0.06 (0.00-0.50) K/uL Baso # (Auto) 0.00 (0.00-0.30) K/uL Abs Immat Gran (auto) 0.00 (0.00-0.30) K/uL Imm/Tot Granulo (auto) 0.0 % Sodium 137 (135-149) mmol/L Potassium 4.4 (3.6-5.1) mmol/L Chloride 104 (96-114) mmol/L Carbon Dioxide 25 (20-32) mmol/L Anion Gap 8 (7-15) mEq/L BUN 19 (7-30) mg/dL Creatinine 0.6 (0.5-1.5) mg/dL Estimated Creat Clear 83.79 Estimated GFR 106 ml/min Glucose 92 (60-115) mg/dL Calcium 9.7 (8.4-10.6) mg/dL Total Bilirubin 0.7 (0.1-1.5) mg/dL Direct Bilirubin 0.1 (0.0-0.5) mg/dL AST 31 (12-35) U/L ALT 31 (4-35) U/L Alkaline Phosphatase 86 (40-150) U/L C-Reactive Protein < 0.5 L (0.5-1.0) mg/dL Total Protein 7.6 (6.0-8.3) g/dL Albumin 4.6 (3.3-5.0) g/dL Urine Color Yellow (Yellow) Urine Appearance Clear (Clear) Urine pH 6.0 (5.0-8.5) Ur Specific [place] 1.025 (1.000-1.030) Urine Protein Negative (Negative) Urine Glucose (UA) Negative (Negative) Urine Ketones Negative (Negative) Urine Blood Negative (Negative) Urine Nitrite Negative (Negative) Urine Bilirubin Negative (Negative) Urine Urobilinogen 0.2 (0.2-1.0) Ur Leukocyte Esterase Trace A (Negative) Discharge Plan Discharge Clinical Impression: Back pain Patient Disposition: Home, Self-Care Condition: Stable Additional Instructions: Use a heating pad to the sore area, okay to use Tylenol as needed. Recommend increasing daily physical exercise. Prescriptions: No Action trazodone 100 mg tablet 200 mg PO .hs PRN (Reason: insomnia) Qty: 60 3RF Pulmicort Flexhaler 90 mcg/actuation aerosol powdr breath activated 1 inh inhalation BID 90 Days Qty: 180 3RF albuterol sulfate 90 mcg/actuation HFA aerosol inhaler 2 puff inhalation Q4-6H PRN (Reason: shortness of breath or wheezing) Qty: 8.5 6RF amoxicillin-pot clavulanate 875-125 mg tablet 1 tab PO BID Qty: 10 0RF albuterol sulfate 90 mcg/actuation HFA aerosol inhaler 2 inh INHALATION levothyroxine 50 mcg tablet 50 mcg PO QDAY Qty: 90 0RF Follow Up/Referrals: Killian Potts MD [Primary Care Provider] - Stand Alone Forms: [facility] Info Instructions
[2023-11-19 19:17] LABS: Eosinophils Absolute Auto 0.06 K/uL (0.00-0.50); Eosinophils Percent Auto 1.3 % (0.0-7.0); Hematocrit 41.3 % (33.0-51.0); Hemoglobin* 13.2 gm/dL (12.0-16.0); Lymphocytes Absolute Auto 1.29 K/uL (0.90-2.90); Lymphocytes Percent Auto 27.7 % (20-44); Mean Corpuscular HGB Conc 32 gm/dL (32-36); Mean Corpuscular Hemoglobin 30 pg (26-34); Mean Corpuscular Volume 93 fL (80-100); Monocytes Percent Auto 13.1 % (0.0-11.0); Neutrophils Percent Auto 57.9 % (42.0-72.0); Platelet Count* 169 K/uL (140-440); RDW Coefficient of Variation % 12.8 % (11.5-15.5); Red Blood Count 4.42 m/uL (4.00-5.20); White Blood Count* 4.66 K/uL (4.50-11.00)
[2023-11-19 19:18] LABS: Slide Review Reflex No
[2023-11-19 19:23] LABS: Albumin* 4.6 g/dL (3.3-5.0); Chloride* 104 mmol/L (96-114); Sodium* 137 mmol/L (135-149)
[2023-11-19 19:24] LABS: Potassium* 4.4 mmol/L (3.6-5.1)
[2023-11-19 19:25] LABS: Creatinine* 0.6 mg/dL (0.5-1.5); Est. Creatinine Clearance* 83.79; Estimated Glomerular Filt Rate 106 ml/min
[2023-11-19 19:26] LABS: Alanine Aminotransferase* 31 U/L (4-35); Alkaline Phosphatase* 86 U/L (40-150); Anion Gap 8 mEq/L (7-15); Aspartate Amino Transferase* 31 U/L (12-35); Bilirubin Direct* 0.1 mg/dL (0.0-0.5); Bilirubin Total* 0.7 mg/dL (0.1-1.5); Blood Urea Nitrogen* 19 mg/dL (7-30); Carbon Dioxide* 25 mmol/L (20-32); Glucose* 92 mg/dL (60-115); Total Protein* 7.6 g/dL (6.0-8.3)
[2023-11-19 19:27] LABS: Calcium* 9.7 mg/dL (8.4-10.6)
[2023-11-19 19:37] LABS: C Reactive Protein* < 0.5 mg/dL (0.5-1.0)
[2023-11-19 19:47] LABS: Appearance Urine Clear (Clear); Bilirubin Urine Negative (Negative); Blood Urine Negative (Negative); Color Urine Yellow (Yellow); Glucose Urine Negative (Negative); Ketones Urine Negative (Negative); Leukocyte Esterase Urine Trace (Negative); Nitrite Urine Negative (Negative); Protein Urine Negative (Negative); Specific Gravity Urine 1.025 (1.000-1.030); Urobilinogen Urine 0.2 (0.2-1.0)
[2023-11-19 20:04] LABS: Bacteria Urine Few; RBC Urine 0-2 (0-2); Squamous Epithelial Cell Urine Few (None-Few); WBC Urine 0-2 (0-5)
== END 2023-11-19 20:08 | disposition home or self-care (01) ==
PROVIDERS: Emergency Provider Family Medicine; PCP Internal Medicine
DX: M54.9 Dorsalgia, unspecified (principal); X50.1XXA Overexertion from prolonged static or awkward postures, initial encounter
CPT/HCPCS: 36415; 80048; 80076; 81001; 85025; 86140; 87086; 99283; 99284

== ENCOUNTER 2024-03-15 16:08 | Outpatient (CLI) | payer BC, SELFPAY ==
--- OUTSIDE RECORDS SUMMARY | 2024-03-15 16:11 | XMS_ITS | Continuity of Care Document ---
Author Organization Z [facility] Address [address] [place] [address] [address] [place] [address] Phone Care Team Providers Care Tape Coater Name Role Phone Seferino Yanez MD Unavailable Unavailable Advance Directives Directive Yes / No Effective Date File Name No Information Encounters Encounter Description Practice Location Reason(s) For Visit Diagnoses Date Provider Providers Copied on Encounter Z [facility], [address], [address], tel:[phone] [address] [facility] No Information Renata Gentile. [facility] [place], [address], [place], [id number] , [place]. tel:[phone] Family History Family Member Type Diagnosis Age At Onset No Information Payers Payer name Insurance type Covered green party ID Authoriza timonty(s) [place] [id number] [facility] [id number] Social History Type Description Quantity Date Captured [...]
--- OUTSIDE RECORDS SUMMARY | 2024-03-15 16:11 | XMS_ITS | Clinical Summary ---
Author Organization [facility] Address [place], [place] [address] Care Team Providers Care Director Report Name Role Phone No, Pcp [[id number]] Primary [...] 1 TIME FOR 1 DOSE 1 tablet 01/19/2017 Active cyclobenzaprine (FLEXERIL) 5 mg tabletIndications:Ne ck pain, acute Take 1-2 tablets by mouth every 8 hours if needed for Muscle Spasm. 30 tablet 06/14/2017 Active levothyroxine (SYNTHROID) 75 mcg tabletIndications:Hy pothyroidism, unspecified type Take 1 tablet by mouth once daily. 30 tablet 11/15/2017 Active Active Problems Problem Noted Date [...] Outcome GA Total Labor Labor/2nd/3rd Weight Sex Type Anes PTL Sherri A1 A5 Name Clin Para Para Last Filed Vital Signs Vital [...] 154.9 cm (5' 1) 09/14/2016 1:43 PM [facility] Body Mass Index 31.69 09/14/2016 1:43 PM [facility] Plan of Treatment Health Maintenance Due Date Last Done Comments HIV for age 15-65 1983 Hepatitis C [...] 04/03/2020 04/03/2015, 01/22/2015, 01/19/2014, Additional history exists COVID-19 vaccine series (2022-24 season) 2023 Influenza for age 50-64 04/23/2024 08/28/2006 Tdap Completed 08/12/2009 Pneumococcal series for age 6-64 Aged Out No longer eligible based on patient's age to complete this topic Procedures Procedure Name Priority Date/Time Associated Diagnosis Comments XR MAMMO BILAT SCREENING Routine 09/08/2016 4:48 PM [facility] Visit for screening mammogram LIPID PANEL W REFLEX MEASURED LDL Routine 04/03/2015 5:40 PM CDT Hyperlipidemia DATA ENTRY SUPERVISOR THIN PREP PAP SCREEN IMAGED Routine 01/22/2015 10:46 AM CDT Screening for malignant neoplasm of the cervix from Last 3 Months or Most Recently Relevant to Health Maintenance Results * XR MAMMO BILAT SCREENING (09/08/2016 4:48 PM [facility]) Anatomical Region Laterality Modality BREASTS, Breast Left, Breast Right Bilateral Mammography Impressions 09/09/2016 12:28 PM [facility]OOK ??There is no radiographic evidence for malignancy. ??Recommend annual mammograms. A lay language report of this examination will be provided to the patient. MAMMOGRAM ASSESSMENT: ??ACR 2 Benign Narrative 09/09/2016 12:28 PM [facility] K[facility]TLE COOK XR MAMMO BILAT SCREENING [[id number]] CLINICAL HISTORY: ??This is an asymptomatic 46 y.o. patient. INDICATION FOR EXAM: Mammogram Screening. TECHNIQUE: CC & MLO views were obtained. ??This digital study was evaluated with the assistance of Computer-Aided Detection. COMPARISON FILMS: Yes 09/19/12 [facility] FINDINGS: ??Mammographically, the breast tissue has scattered fibroglandular densities. ??No suspicious masses or microcalcifications. ?? Intramammary lymph node within right breast. Lakesha VAZQUEZ MAMMO * (ABNORMAL) LIPID PANEL W REFLEX MEASURED LDL (04/03/2015 5:40 PM CDT) CHOLESTEROL,TOTAL 312(H) 100 - 199 mg/dL 04/03/2015 6:52 PM CDT [facility] TRIGLYCERIDES 151(H) <150 mg/dL 04/03/2015 6:52 PM CDT [facility] HDL CHOLESTEROL 80 >40 mg/dL 04/03/2015 6:52 PM CDT [facility] NON-HDL CHOLESTEROL 232(H) <145 mg/dl 04/03/2015 6:52 PM CDT [facility] CHOL/HDL RATIO 3.90 <4.50 04/03/2015 6:52 PM CDT [facility] LDL CHOLESTEROL 202(H) <=130 mg/dL 04/03/2015 6:52 PM CDT [facility] PATIENT STATUS NON-FASTI NG 04/03/2015 6:52 PM CDT [facility] Blood specimen (specimen) BLOOD SPECIMEN / Unknown Butterfly / Unknown 04/03/2015 5:40 PM CDT 04/03/2015 5:40 PM CDT Rekha Whittaker CHEMISTRY [facility] [address] [place] [address], * DATA ENTRY SUPERVISOR THIN PREP PAP SCREEN IMAGED (01/22/2015 10:46 AM CDT) DATA ENTRY SUPERVISOR CYTOLOGY See Anatomic Pathology case 01/27/2015 11:[address] [facility] Specimen (specimen) (Cervical/Vagina l) Non-Blood / Unknown 01/22/2015 10:46 AM CDT 01/22/2015 10:46 AM CDT Rekha Whittaker PATHOLOGY/CYTOL OGY [facility] [address] [place] [address], from Last 3 Months or Most Recently Relevant to Health Maintenance Care Teams Director Report Relationship Specialty Start Date End Date NO, PCP [[id number]] PCP - General 11/25/15
== END 2024-03-15 16:09 | disposition home or self-care (01) ==
LOC: NFLDREF 16:10
PROVIDERS: PCP Internal Medicine; Visit Provider Family Medicine
DX: E03.9 Hypothyroidism, unspecified (principal); R63.5 Abnormal weight gain
CPT/HCPCS: 84439; 84443

== ENCOUNTER 2024-04-11 10:36 | Outpatient (CLI) | payer BC, SELFPAY ==
--- OUTSIDE RECORDS SUMMARY | 2024-04-11 10:38 | XMS_ITS | Clinical Summary ---
Author Organization [facility] Address [place], [place] [address] Care Team Providers Care Director Independent Name Role Phone No, Pcp [[id number]] Primary [...] 154.9 cm (5' 1) 09/14/2016 1:43 PM MEDICAL DERMATOLOGIST Body Mass Index 31.69 09/14/2016 1:43 PM MEDICAL DERMATOLOGIST Plan of Treatment Health Maintenance Due Date [...] MAMMO BILAT SCREENING Routine 09/08/2016 4:48 PM MEDICAL DERMATOLOGIST Visit for screening mammogram LIPID PANEL W REFLEX MEASURED LDL Routine 04/03/2015 5:40 PM CDT Hyperlipidemia VICE PRESIDENT BUSINESS DEVELOPMENT THIN PREP PAP SCREEN IMAGED Routine 01/22/2015 10:46 AM CDT Screening for malignant neoplasm of the cervix from Last 3 Months or Most Recently Relevant to Health Maintenance Results * XR MAMMO BILAT SCREENING (09/08/2016 4:48 PM MEDICAL DERMATOLOGIST) Anatomical Region Laterality Modality BREASTS, Breast Left, Breast Right Bilateral Mammography Impressions 09/09/2016 12:28 PM MEDICAL DERMATOLOGIST ??There is no radiographic evidence for malignancy. ??Recommend annual mammograms. A lay language report of this examination will be provided to the patient. MAMMOGRAM ASSESSMENT: ??ACR 2 Benign Narrative 09/09/2016 12:28 PM MEDICAL DERMATOLOGIST XR MAMMO BILAT SCREENING [[id number]] CLINICAL HISTORY: ??This is an asymptomatic 46 y.o. patient. INDICATION FOR EXAM: Mammogram Screening. TECHNIQUE: CC & MLO views were obtained. ??This digital study was evaluated with the assistance of Computer-Aided Detection. COMPARISON FILMS: Yes 09/19/12 [facility] FINDINGS: ??Mammographically, the breast tissue has scattered fibroglandular densities. ??No suspicious masses or microcalcifications. ?? Intramammary lymph node within right breast. Lakesha VAZQUEZ MAMMO * (ABNORMAL) LIPID PANEL W REFLEX MEASURED LDL (04/03/2015 5:40 PM CDT) CHOLESTEROL,TOTAL 312(H) 100 - 199 mg/dL 04/03/2015 6:52 PM CDT [facility] TRIGLYCERIDES 151(H) <150 mg/dL 04/03/2015 6:52 PM CDT [facility] HDL CHOLESTEROL 80 >40 mg/dL 04/03/2015 6:52 PM CDT [facility] NON-HDL CHOLESTEROL 232(H) <145 mg/dl 04/03/2015 6:52 PM CDT [facility] CHOL/HDL RATIO 3.90 <4.50 04/03/2015 6:52 PM CDT [facility] LDL CHOLESTEROL 202(H) <=130 mg/dL 04/03/2015 6:52 PM CDT [facility] PATIENT STATUS NON-FASTI NG 04/03/2015 6:52 PM CDT [facility] Blood specimen (specimen) BLOOD SPECIMEN / Unknown Butterfly / Unknown 04/03/2015 5:40 PM CDT 04/03/2015 5:40 PM CDT Rekha Whittaker CHEMISTRY [facility] [address] [place] [address], * VICE PRESIDENT BUSINESS DEVELOPMENT THIN PREP PAP SCREEN IMAGED (01/22/2015 10:46 AM CDT) VICE PRESIDENT BUSINESS DEVELOPMENT CYTOLOGY See Anatomic Pathology case 01/27/2015 11:00 AM CDT [facility] Specimen (specimen) (Cervical/Vagina l) Non-Blood / Unknown 01/22/2015 10:46 AM CDT 01/22/2015 10:46 AM CDT Rekha Whittaker PATHOLOGY/CYTOL OGY [facility] [address] [place] [address], from Last 3 Months or Most Recently Relevant to Health Maintenance Care Teams Director Independent Relationship Specialty Start Date End Date NO, PCP [[id number]] PCP - General 11/25/15
--- OUTSIDE RECORDS SUMMARY | 2024-04-11 10:38 | XMS_ITS | Continuity of Care Document ---
Author Organization [facility] Address [address] [place] [address] [address] [place] [address] Phone Care Team Providers Care Relocation Counselor Name Role Phone Seferino Yanez MD Unavailable Unavailable Advance Directives Directive Yes / No Effective Date File Name No Information Encounters Encounter Description Practice Location Reason(s) For Visit Diagnoses Date Provider Providers Copied on Encounter Z [facility], [address], [address], tel:[phone] [address] [facility] No Information Renata Gentile. [facility] [place], [address], [place], [id number] , [place]. tel:[phone] Family History Family Member Type Diagnosis Age At Onset No Information Payers Payer name Insurance type Covered libertarian ID Authoriza timonty(s) [place] [id number] [facility] [id number] Social History Type Description Quantity Date Captured [...]
--- NOTE | 2024-04-11 10:45 | CRLHL7_ITS ---
For Patients: As a result of the Cures Act, medical imaging exams and procedure reports are released immediately into your electronic medical record. You may view this report before your referring provider. If you have questions, please contact your health care provider. BILATERAL DIAGNOSTIC MAMMOGRAM WITH COMPUTER-AIDED DETECTION AND TOMOSYNTHESIS CLINICAL HISTORY: BILATERAL breast pain. COMPARISON: 03/07/2021, 04/07/2019. TECHNIQUE: Digital BILATERAL mammogram in four projections with computer-aided detection. Tomosynthesis was used in this interpretation. BREAST COMPOSITION: There are scattered areas of fibroglandular density. FINDINGS: 3D CC and MLO BILATERAL mammogram images submitted. No suspicious mass or architectural distortion. No adenopathy or suspicious calcifications. IMPRESSION: Normal BILATERAL mammograms. RECOMMENDATIONS: Annual BILATERAL screening mammography. BI-RADS Category 2: Benign A lay language report of this examination will be provided to the patient. Dictated by Malcolm Barrera MD @ 04/11/2024 11:46:32 AM /abhijeet/edel SP/Dictated by: Malcolm Barrera MD @ 04/11/2024 11:46:00 AM (Electronically Signed)
== END 2024-04-11 10:37 | disposition home or self-care (01) ==
LOC: MAMMO 10:36
PROVIDERS: PCP Internal Medicine; Visit Provider Family Medicine
DX: N64.4 Mastodynia (principal)
CPT/HCPCS: 77066; G0279

== ENCOUNTER 2024-07-05 16:22 | Outpatient (CLI) | payer BC, SELFPAY ==
--- OUTSIDE RECORDS SUMMARY | 2024-07-08 20:17 | XMS_ITS | Continuity of Care Document ---
Author Organization Z [facility] Address [address] [place] [address] [address] [place] [address] Phone Care Team Providers Care Java Grails Developer Name Role Phone Seferino Yanez MD Unavailable Unavailable Advance Directives Directive Yes / No Effective Date File Name No Information Encounters Encounter Description Practice Location Reason(s) For Visit Diagnoses Date Provider Providers Copied on Encounter Z [facility], [address], [address], tel:[phone] [address] [facility] No Information Renata Gentile. [facility] [place], [address] [address], [place], [id number] , [place]. tel:[phone] Family History Family Member Type Diagnosis Age At Onset No Information Payers Payer name Insurance type Covered green party ID Authoriza timonty(s) [place] [id number] [facility] [id number] Social History Type Description Quantity Date Captured [...]
--- OUTSIDE RECORDS SUMMARY | 2024-07-08 20:17 | XMS_ITS | Clinical Summary ---
Author Organization [email or web address] [facility] Address [place], [place] [address] Care Team Providers Care Instructor Substitute Cosmetology Name Role Phone No, Pcp [[id number]] Primary [...] bral disc 11/21/2007 Head injury, unspecified 02/08/2007 Overview (02/08/2007): fell down stairs in 1997 Unspecified asthma(493.90) [...] 2 2 Date Outcome GA Total Labor Labor//3rd Weight Sex Type Anes PTL Sherri A1 [...] 154.9 cm (5' 1) 09/14/2016 1:43 PM BINDERY SUPERVISOR Body Mass Index 31.69 09/14/2016 1:43 PM BINDERY SUPERVISOR Plan of Treatment Health Maintenance Due Date [...] 01/19/2014, Additional history exists COVID-19 vaccine series (2023- season) 2024 Influenza for age 50-64 04/23/2024 08/28/2006 Tdap Completed 08/12/2009 Pneumococcal series for age 6-64 Aged Out No longer eligible based on patient's age to complete this topic Procedures Procedure Name Priority Date/Time Associated Diagnosis Comments XR MAMMO BILAT SCREENING Routine 09/08/2016 4:48 PM BINDERY SUPERVISOR Visit for screening mammogram LIPID PANEL W REFLEX MEASURED LDL Routine 04/03/2015 5:40 PM CDT Hyperlipidemia POWER STATION OPERATOR THIN PREP PAP SCREEN IMAGED Routine 01/22/2015 10:46 AM CDT Screening for malignant neoplasm of the cervix from Last 3 Months or Most Recently Relevant to Health Maintenance Results * XR MAMMO BILAT SCREENING (09/08/2016 4:48 PM BINDERY SUPERVISOR) Anatomical Region Laterality Modality BREASTS, Breast Left, Breast Right Bilateral Mammography Impressions 09/09/2016 12:28 PM BINDERY SUPERVISOR ??There is no radiographic evidence for malignancy. ??Recommend annual mammograms. A lay language report of this examination will be provided to the patient. MAMMOGRAM ASSESSMENT: ??ACR 2 Benign Narrative 09/09/2016 12:28 PM BINDERY SUPERVISOR XR MAMMO BILAT SCREENING [[id number]] CLINICAL HISTORY: ??This is an asymptomatic 46 y.o. patient. INDICATION FOR EXAM: Mammogram Screening. TECHNIQUE: CC & MLO views were obtained. ??This digital study was evaluated with the assistance of Computer-Aided Detection. COMPARISON FILMS: Yes 09/19/12 [facility] FINDINGS: ??Mammographically, the breast tissue has scattered fibroglandular densities. ??No suspicious masses or microcalcifications. ?? Intramammary lymph node within right breast. Lakesha VAZQUEZ MAMMO * (ABNORMAL) LIPID PANEL W REFLEX MEASURED LDL (04/03/2015 5:40 PM CDT) CHOLESTEROL,TOTAL 312(H) 100 - 199 mg/dL 04/03/2015 6:52 PM CDT [facility] TRIGLYCERIDES 151(H) <150 mg/dL 04/03/2015 6:52 PM CDT [facility] HDL CHOLESTEROL 80 >40 mg/dL 04/03/2015 6:52 PM CDT [facility] NON-HDL CHOLESTEROL 232(H) <145 mg/dl 04/03/2015 6:52 PM CDT [facility] CHOL/HDL RATIO 3.90 <4.50 04/03/2015 6:52 PM CDT [facility] LDL CHOLESTEROL 202(H) <=130 mg/dL 04/03/2015 6:52 PM CDT [facility] PATIENT STATUS NON-FASTI NG 04/03/2015 6:52 PM CDT [facility] Blood specimen (specimen) BLOOD SPECIMEN / Unknown Butterfly / Unknown 04/03/2015 5:40 PM CDT 04/03/2015 5:40 PM CDT Rekha Whittaker CHEMISTRY [facility] [address] [place] [address], * POWER STATION OPERATOR THIN PREP PAP SCREEN IMAGED (01/22/2015 10:46 AM CDT) POWER STATION OPERATOR CYTOLOGY See Anatomic Pathology case 01/27/2015 11:00 AM CDT [facility] Specimen (specimen) (Cervical/Vagina l) Non-Blood / Unknown 01/22/2015 10:46 AM CDT 01/22/2015 10:46 AM CDT Rekha Whittaker PATHOLOGY/CYTOL OGY [facility] [address] [place] [address], [place] from Last 3 Months or Most Recently Relevant to Health Maintenance Care Teams Instructor Substitute Cosmetology Relationship Specialty Start Date End Date NO, PCP [[id number]] PCP - General 11/25/15
== END 2024-07-05 16:23 | disposition home or self-care (01) ==
LOC: NFLDREF 07-08 20:15
PROVIDERS: PCP Internal Medicine; Referring Provider Internal Medicine; Visit Provider Family Medicine
DX: E03.9 Hypothyroidism, unspecified (principal)
CPT/HCPCS: 84439; 84443

== ENCOUNTER 2024-09-27 08:09 | Outpatient (CLI) | payer BC, SELFPAY ==
--- NOTE | 2024-09-27 09:00 | CRLHL7_ITS ---
For Patients: As a result of the Century Cures Act, medical imaging exams and procedure reports are released immediately into your electronic medical record. You may view this report before your referring provider. If you have questions, please contact your health care provider. INDICATION: Mid abdominal pain. Possible mass. TECHNIQUE: Volumetric helical scanning of the abdomen and pelvis was performed with 98 cc of Isovue 370 contrast material IV. Coronal and sagittal reconstructions were obtained. COMPARISON: Abdomen/pelvis CT of 07/15/2018 FINDINGS: No mass or hernia is demonstrated. The liver is unremarkable except for a [address] in segment 6. Postop changes of cholecystectomy are again demonstrated. The bile ducts are within normal limits. The spleen, adrenal glands and pancreas are negative. The kidneys are unremarkable. There is no evidence of bowel obstruction or inflammation. Normal appendix is noted. No lymphadenopathy is evident. No free fluid is demonstrated. A subserosal 1 cm right uterine fundal fibroid is again demonstrated. The uterus is otherwise unremarkable. No ovarian abnormality is noted. The lung bases are essentially clear, and heart size is normal. IMPRESSION: 1. Etiology of mid abdominal pain not evident. No mass demonstrated. 2. Post cholecystectomy. 3. 2 cm liver cyst. 4. 1 cm subserosal right uterine fundal fibroid. Please note that all CT scans at this facility use dose modulation, iterative reconstruction, and/or weight-based dosing when appropriate to reduce radiation dose to as low as reasonably achievable. Dictated by Enrico Roa MD @ 09/27/2024 1:23:48 PM (Electronically Signed)
== END 2024-09-27 08:10 | disposition home or self-care (01) ==
PROVIDERS: PCP Internal Medicine; Visit Provider Internal Medicine
DX: R10.30 Lower abdominal pain, unspecified (principal); R63.5 Abnormal weight gain; E03.9 Hypothyroidism, unspecified; E78.00 Pure hypercholesterolemia, unspecified; K76.89 Other specified diseases of liver; D25.2 Subserosal leiomyoma of uterus
CPT/HCPCS: 74177; 80053; 84439; 84443; 87086; Q9967

== ENCOUNTER 2025-07-18 15:52 | Emergency (ER) | payer BC, SELFPAY ==
--- OUTSIDE RECORDS SUMMARY | 2025-07-18 15:54 | XMS_ITS | Clinical Summary ---
Author Organization [employer] [facility] Address [address] [place] [id number] Care Team Providers Care Ceo Name Role Phone No, Pcp [[id number]] Primary Care Provider Unavailabl e Allergies Active Allergy Reactions Criticality Noted Date Comments Codeine Hives 07/21/2011 Kiwi Shortness Of Breath 01/10/2016 Peanut Hives,Itching 01/10/2016 Medications CALCIUM CARBONATE-VITAMIN D2 500 MG-200 UNIT TAB 1 po bid 60 3 07/10/20 08 Active nystatin (MYCOSTATIN) creamIndications:F ungal rash of torso Apply topically to affected area(s) each time if needed for Other (Specify). 30 g 1 01/23/20 15 Active fexofenadine (MYRIAM) 180 mg tabletIndications: Allergic reaction, subsequent encounter Take 1 tablet by mouth once daily. 0 01/23/20 15 Active cholecalciferol (VITAMIN D-3) 2,000 unit capsuleIndications :Vitamin D deficiency Take 1 capsule by mouth once daily. 0 01/24/20 15 Active albuterol HFA 90 mcg/actuation inhalerIndications :Moderate persistent asthma without complication (HC) Inhale 2 Puffs by mouth 4 times daily if needed. 1 Inhaler 3 09/03/19 17 Active fluticasone (FLOVENT HFA) 110 mcg/Actuation inhalerIndications :Moderate persistent asthma without complication (HC) Inhale 2 Puffs by mouth 2 times daily. 1 Inhaler 11 09/03/19 17 Active atorvastatin (LIPITOR) 20 mg tabletIndications: Hyperlipidemia, unspecified hyperlipidemia type Take 1 tablet by mouth once daily. 30 tablet 1 09/03/19 17 Active EPINEPHrine (EPIPEN) 0.3 mg/0.3 mL injectionIndicatio ns:Allergic reaction, subsequent encounter Inject 0.3 mg intramuscular one time if needed for Allergic Reaction. 1 Each 09/03/19 17 Active fluconazole (DIFLUCAN) 150 mg tabletIndications: Yeast infection TAKE 1 TABLET BY MOUTH 1 TIME FOR 1 DOSE 1 tablet 01/20/20 17 Active cyclobenzaprine (FLEXERIL) 5 mg tabletIndications: Neck pain, acute Take 1-2 tablets by mouth every 8 hours if needed for Muscle Spasm. 30 tablet 06/14/20 17 Active levothyroxine (SYNTHROID) 75 mcg tabletIndications: Hypothyroidism, unspecified type Take 1 tablet by mouth once daily. 30 tablet 11/16/19 18 Active Active Problems Problem Noted Date Diagnosed Date Neck pain, acute 06/14/2017 Vitamin D deficiency 01/22/2014 Hypothyroidism 01/22/2014 Heel pain 01/17/2014 Actinic keratosis 06/01/2013 L3-4 and L5-S1 Herniations 03/25/2009 Right L4 and Left S1 Radiculitis 03/25/2009 Degeneration of lumbar or lumbosacral interverte bral disc 11/21/2007 Head injury, unspecified 02/08/2007 Overview (02/08/2007): fell down stairs in 1997 Unspecified asthma(493.90) 02/08/2007 Immunizations Immunization Administration Dates Next Due Influenza, IIV3 (Age [...] alcohol) 1-2 drinks on the weekend occasionally Comments No Sex and Gender Information Value Date Recorded Sex Assigned at Not on file Legal Sex Female 5:54 AM INTERNET MARKETING EXECUTIVE Gender Identity Not on file Sexual Orientation [...] 81 06/14/2017 1:33 PM CDT Temperature 36.9 C (98.4 F) 06/14/2017 1:33 PM CDT Respiratory Rate 18 01/10/2016 1:30 PM CDT Oxygen Saturation 98% 06/14/2017 1:33 PM CDT Inhaled Oxygen Concentration - - Weight 76.1 kg (167 lb 11.2 oz) 06/14/2017 1:33 PM CDT Height 154.9 cm (5' 1) 09/14/2016 1:43 PM INTERNET MARKETING EXECUTIVE Body Mass Index 31.69 09/14/2016 1:43 PM INTERNET MARKETING EXECUTIVE Plan of Treatment Health Maintenance Due Date Last Done Comments HIV for age 15-65 1983 Hepatitis C screening for ag e 18-79 1986 Hepatitis B series for 19+ ( 1 of 3 - 19+ 3-dose series) 1987 Colonoscopy through age 75 2013 Mammogram for age 45-75 09/08/2017 09/08/2016, 09/19 BMI (ht and wt on same day) for age 18+ 09/14/2017 09/14/2016, 09/03/2016, 01/10/2016 Depression screening for age 12+ 09/14/2017 09/14/19 17 Pap test for age 21-65 01/22/2018 5, 01/17/2014, 05/01/2011, Additional history exists Pneumococcal series for age 50+ (1 of 1 - PCV) 2018 Zoster (shingles) series for age 50+ (1 of 2) 2018 Tetanus booster 08/12/2019 08/12/2009 Lipids for age 45-75 04/03/2020 04/03/2015, 01/22/2015, 01/19/2014, Additional history exists Influenza Vaccine (#1) 2025 08/28/2006 RSV vaccine for adults or (1 - 1-dose 75+ series) 2043 Procedures Procedure Name Priority Date/Time Associated Diagnosis Comments XR MAMMO BILAT SCREENING Routine 09/08/2016 4:48 PM INTERNET MARKETING EXECUTIVE Visit for screening mammogram LIPID PANEL W REFLEX MEASURED LDL Routine 04/03/2015 5:40 PM CDT Hyperlipidemia PHOTOGEOLOGIST THIN PREP PAP SCREEN IMAGED Routine 01/22/2015 10:46 AM CDT Screening for malignant neoplasm of the cervix from Last 3 Months or Most Recently Relevant to Health Maintenance Results * XR MAMMO BILAT SCREENING (09/08/2016 4:48 PM INTERNET MARKETING EXECUTIVE) Anatomical Region Laterality Modality BREASTS, Breast Left, Breast Right Bilateral Mammography Impressions 09/09/2016 12:28 PM INTERNET MARKETING EXECUTIVE There is no radiographic evidence for malignancy. Recommend annual mammograms. A lay language report of this examination will be provided to the patient. MAMMOGRAM ASSESSMENT: ACR 2 Benign Narrative 09/09/2016 12:28 PM INTERNET MARKETING EXECUTIVE XR MAMMO BILAT SCREENING [[id number]] CLINICAL HISTORY: This is an asymptomatic 46 y.o. patient. INDICATION FOR EXAM: Mammogram Screening. TECHNIQUE: CC & MLO views were obtained. This digital study was evaluated with the assistance of Computer-Aided Detection. COMPARISON FILMS: Yes 09/19/12 [facility] FINDINGS: Mammographically, the breast tissue has scattered fibroglandular densities. No suspicious masses or microcalcifications. Intramammary lymph node within right breast. us Lakesha VAZQUEZ MAMMO Final R esult * (ABNORMAL) LIPID PANEL W REFLEX MEASURED LDL (04/03/2015 5:40 PM CDT) CHOLESTEROL,TOTAL 312(H) 100 - 199 mg/dL 04/03/2015 6:52 PM CDT [facility] TRIGLYCERIDES 151(H) <150 mg/dL 04/03/2015 6:52 PM CDT [facility] HDL CHOLESTEROL 80 >40 mg/dL 04/03/2015 6:52 PM CDT [facility] NON-HDL CHOLESTEROL 232(H) <145 mg/dl 04/03/2015 6:52 PM CDT [facility] CHOL/HDL RATIO 3.90 <4.50 04/03/2015 6:52 PM CDT [facility] LDL CHOLESTEROL 202(H) <=130 mg/dL 04/03/2015 6:52 PM CDT [facility] PATIENT STATUS NON-FASTI NG 04/03/2015 6:52 PM CDT [facility] Blood specimen (specimen) BLOOD SPECIMEN / Unknown Butterfly / Unknown 04/03/2015 5:40 PM CDT 04/03/2015 5:40 PM CDT Rekha Whittaker CHEMISTRY Final R esult [facility] [address] [place] [address], [place] [phone] * PHOTOGEOLOGIST THIN PREP PAP SCREEN IMAGED (01/22/2015 10:46 AM CDT) PHOTOGEOLOGIST CYTOLOGY See Anatomic Pathology case 01/27/2015 11:00 AM CDT [facility] Specimen (specimen) (Cervical/Vagina l) Non-Blood / Unknown 01/22/2015 10:46 AM CDT 01/22/2015 10:46 AM CDT Rekha Whittaker PATHOLOGY/CYTOLOGY Evy l Result [facility] [address] [place] [address], [place] from Last 3 Months or Most Recently Relevant to Health Maintenance Insurance [facility] Care Teams Ceo Relationship Specialty Start Date End Date NO, PCP [[id number]] PCP - General 11/25/15
[2025-07-18 16:02] VITALS: BP 162/97; PULSE 96; RESP 18; TEMP 37; O2SAT 97
--- NOTE | 2025-07-18 16:31 | ED.BACK ---
HPI - Back Pain/Injury General Time Seen by Provider: 16:31 Date Seen: 07/18/25 Chief Complaint: Back Injury/Pain Stated Complaint: back pain Time Seen by Provider: 07/18/25 16:31 Source: patient, RN notes reviewed and old records reviewed Mode of arrival: ambulatory Limitations: no limitations History of Present Illness HPI Narrative: Rebecca is a very pleasant 54-year-old female with past history of TBI, chronic back and neck pain, hypothyroidism who comes to the emergency room today with complaints of right-sided back pain. Patient notes that she has had back pain since her 20s. She has undergone treatment with medics machines, injections all which have worked. However she states it has not ever long-lasting curing of her problem. This past WednesdayJuly 15 she was at her home and was reaching and felt a pulling sensation in her left back over her flank area. Usually she states when she feels this kind of pain it takes 2-3 days to work itself out and unfortunately has not thus far. She has no new leg symptoms with this. She notes that she has been trying to use ice and heat as well as alternating Tylenol and ibuprofen. She states she even tried to use a glass jar to roll on her back. Patient denies any fever or any other new symptoms. She does note that she has a syndrome were half of her body-the left side will go completely numb including her face breast arm and leg. That is not occurring today. She notes that she never really got any answers to why that happened. Related Data Previous Rx's ?Medication ?Instructions ?Recorded albuterol sulfate 90 mcg/actuation 2 puff inhalation Q4-6H PRN 02/29/24 aerosol inhaler shortness of breath or wheezing #8.5 grams levothyroxine 75 mcg tablet 75 mcg PO QDAY #30 tabs 12/12/24 trazodone 100 mg tablet 200 mg (2 x 100 mg) PO .hs PRN 04/17/25 insomnia #180 tabs Allergies Allergy/AdvReac Type Severity Reaction Status Date / Time kiwi Allergy Severe Anaphylaxis Verified 07/18/25 16:06 codeine Allergy Intermediate Hives Verified 07/18/25 16:06 peanut Allergy Intermediate Hives Verified 07/18/25 16:06 pseudoephedrine (From Allergy Intermediate Hives Verified 07/18/25 16:06 Sudafed) Review of Systems Status of ROS: Reports: 6 or more systems reviewed and unremarkable except as noted in History and below Const: Reports: fatigue (Has had difficulty sleeping); Denies: fever Eyes: Denies: change in vision ENMT: Denies: neck pain or nasal congestion Cardio: Denies: chest pain Resp: Denies: cough GI: Denies: vomiting Musculo: Denies: neck pain or extremity pain Endo: Reports: fatigue (Has had difficulty sleeping) PFSH PFSH Medical History Neck pain ?M54.2 - Cervicalgia (ICD-10) Abdominal pain ?R10.9 - Unspecified abdominal pain (ICD-10) Lumbar radiculopathy ?M54.16 - Radiculopathy, lumbar region (ICD-10) History of traumatic brain injury (1997) ?Z87.820 - Personal history of traumatic brain injury (ICD-10) Insomnia ?G47.00 - Insomnia, unspecified (ICD-10) Surgical History History of colonoscopy ?Z98.890 - Other specified postprocedural states (ICD-10) History of cholecystectomy (06/10/12) ?Z90.49 - Acquired absence of other specified parts of digestive tract (ICD-10) Family History Mother Coronary artery disease Social History Narrative: Non-smoker Social alcohol use Does not use illicit drugs What is your current living situation?: I presently have a place to live Problems where you live: mold Problems where you live details: being fixed In the past 12 months, utilities in danger of being shut off: no In past 12 months, lack of transportation kept you from medical appts, meetings, work, or getting things needed for daily living: no In the past 12 mos, have been you worried that your food would run out before you had money to buy more?: never true In the past 12 mos, the food you bought just didn't last and you didn't have money to buy more?: never true Smoking Status: Former smoker Do you use any of these nicotine containing products: None Second hand tobacco smoke exposure: No How often do you have a drink containing alcohol: 2-4 times a month How many standard drinks containing alcohol do you have on a typical day: 1 or 2 How often do you have six or more drinks on one occasion: Never AUDIT-C Alcohol total score: 2 Non-prescribed substance use: denies use How often does anyone, including family, friends and others, physically hurt you: never How often does anyone, including family, friends and others, insult or talk down to you: never How often does anyone, including family, friends and others, threaten you with harm: never How often does anyone, including family, friends and others, scream or curse at you: never service: No Health Related Social Needs: Inadequate housing (Z59.1) Exam Narrative: Exam Narrative: Alert and oriented. Very pleasant woman in no acute distress. External ears eyes nose clear. Face symmetrical. Heart with regular rate and rhythm lungs are clear. Palpation over the spine shows no midline tenderness. Patient has discomfort over the paraspinous musculature at approximately T11 and T12. Pressing in this area does seem to offer her some improvement. Able to the ambulate without difficulty. No overlying skin changes. Const: Vital Signs, click to edit/add: Vital Signs - 24 hr 07/18/25 16:02 Temperature 98.6 F Pulse Rate [Right Pulse Oximeter] 96 Respiratory Rate 18 Blood Pressure [Ri ght Upper Arm] 162/97 H Pulse Oximetry 97 Oxygen Delivery Me thod Room Air Documenting provider has reviewed patient's vital signs: yes Course Course ED Course: Differential diagnosis includes musculoskeletal injury, muscular pole. Do not see any evidence of a rash unusual bruising to indicate hematoma or overlying shingles. Patient knows exactly when this happened and it was with a reaching type of motion. No red flag symptoms are present here today. Vital Signs Vital signs: Initial Vital Signs Temperature 98.6 F 07/18/25 16:02 Temperature Source Temporal Artery Scan 07/18/25 16:02 Pulse Rate 96 07/18/25 16:02 Pulse Rhythm Regular 07/18/25 16:02 Pulse Strength 3+ Normal 07/18/25 16:02 Respiratory Rate 18 07/18/25 16:02 Blood Pressure 162/97 H 07/18/25 16:02 Blood Pressure Mean 118 H 07/18/25 16:02 Blood Pressure Position Sitting 07/18/25 16:02 Pulse Oximetry 97 07/18/25 16:02 Oxygen Delivery Method Room Air 07/18/25 16:02 Vital Signs Temperature 98.6 F 07/18/25 16:02 Pulse Rate 96 07/18/25 16:02 Respiratory Rate 18 07/18/25 16:02 Blood Pressure 162/97 H 07/18/25 16:02 Pulse Oximetry 97 07/18/25 16:02 Oxygen Delivery Method Room Air 07/18/25 16:02 Temperature 98.6 F 07/18/25 16:02 Pulse Rate 96 07/18/25 16:02 Respiratory Rate 18 07/18/25 16:02 Blood Pressure 162/97 H 07/18/25 16:02 Pulse Oximetry 97 07/18/25 16:02 Oxygen Delivery Method Room Air 07/18/25 16:02 MDM - Back Pain/Injury MDM Narrative Medical decision making narrative: 1. Thoracic [id number] at approximately T11/T12. No red flag symptoms. Patient is requesting Toradol as she does not want to use narcotics. No previous history of kidney issues or GI bleed. Will use 30 mg IM Toradol and discharge patient home. Will allow her to use Flexeril 5-10 mg p.o. t.i.d. p.r.n. 15. With no refills from our [facility] meds machine. Have advised her to increase her fluid intake while using ibuprofen and to limit to 6-800 mg each dosing. Recommend also not using Flexeril if she is driving, using any other sedating medication and not to use alcohol. She does note that she uses trazodone but she will skip her trazodone if she is using Flexeril. 2. Disposition-patient is discharged home. Will follow up with her primary MD if she is not improving. Medical Records Attestation: I reviewed the patient's medical records. Discharge Plan Discharge Clinical Impression: Back pain Qualifiers: Back pain location: thoracic back pain Chronicity: acute Back pain laterality: right Qualified Code(s): M54.6 - Pain in thoracic spine Patient Disposition: Home, Self-Care Condition: Improved Additional Instructions: Recommend alternating ibuprofen (600-800 mg) and Tylenol (650-1000) every 4 hours as needed for discomfort. Ice as needed for discomfort. Try to stay active. Follow-up with your primary MD for ongoing pain. Flexeril is a muscle relaxant that can be sedating. You may cut this tablet in half if 1 tablet is too much for you. Please to not use with alcohol or any other sedating medications. Recommend against driving if you are using this medicine. Prescriptions: No Action albuterol sulfate 90 mcg/actuation HFA aerosol inhaler 2 puff inhalation Q4-6H PRN (Reason: shortness of breath or wheezing) Qty: 8.5 2RF levothyroxine 75 mcg tablet 75 mcg PO QDAY Qty: 30 1RF trazodone 100 mg tablet 200 mg PO .hs PRN (Reason: insomnia) Qty: 180 0RF Follow Up/Referrals: Killian Potts MD [Primary Care Provider, Internal Medicine] Stand Alone Forms: [employer] Info Instructions
== END 2025-07-18 17:03 | disposition home or self-care (01) ==
LOC: ED 16:53
PROVIDERS: Emergency Provider Family Medicine; PCP Internal Medicine
DX: M54.6 Pain in thoracic spine (principal); G89.29 Other chronic pain
CPT/HCPCS: 96372; 99283; 99284; J1885